=== PATIENT | female | born 1930 | race Caucasian/White ===

== ENCOUNTER 2016-07-26 15:00 | Outpatient (CLI) | payer MEDICARE, BC | END 2016-07-26 15:01 | disposition home or self-care (01) | DX: Z12.31 Encounter for screening mammogram for malignant neoplasm of breast (principal); Z80.3 Family history of malignant neoplasm of breast ==

== ENCOUNTER 2017-02-24 14:20 | Outpatient (CLI) | payer MEDICARE, BC | END 2017-02-24 14:21 | disposition critical access hospital (66) | LOC: EMS 14:20 | PROVIDERS: ATTEND Surgery | DX: R47.01 Aphasia (principal) | CPT/HCPCS: A0425; A0427 ==

== ENCOUNTER 2017-02-24 14:33 | Observation (INO) | payer MEDICARE, BC ==
--- NOTE | 2017-02-24 14:44 | ED Physician Documentation ---
PD HPI FOCAL NEURO - Stated complaint Stated Complaint: CVA - History obtained from History obtained from: Patient, EMS - History of Present Illness Timing - onset: Other (86-year-old woman with history of recurrent TIAs. Currently taking only clonazepam and pravastatin. She has listed allergies to Aggrenox and Plavix. I asked her why she is not taking aspirin, she says she is taking clonazepam instead. It is not clear why she is not taking aspirin. Regardless she lives with her who has some memory issues and she is basically caring for him. Abruptly at 1350 today started slurring her speech and having left-sided deficits which have improved but not completely resolved in route. 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 - Present Medications Home Medications: Ambulatory Orders Medication Instructions Recorded Confirmed Clonazepam 0.25 mg PO BID 01/31/14 02/24/17 Aspirin 325 mg PO DAILY 03/12/15 02/24/17 Pravastatin Sodium 20 mg PO DAILY #30 tablet 06/21/15 02/24/17 - Allergies Allergies/Adverse Reactions: Allergies Allergy/AdvReac Type Severity Reaction Status Date / Time clopidogrel bisulfate * Allergy Itching Verified 03/12/15 01:15 [From Plavix] dipyridamole [From Aggrenox] Allergy Unknown Verified 03/12/15 01:15 gabapentin Allergy Emesis Verified 03/12/15 01:15 phenytoin sodium * Allergy Unknown Verified 03/12/15 01:15 [From Dilantin] phenytoin sodium extended * Allergy Unknown Verified 03/12/15 01:15 [From Dilantin] - Social History Does the pt smoke?: No Smoking Status: Never smoker Does the pt drink ETOH?: No Does the pt have substance abuse?: No - Family History Family history: reports: Non contributory - Immunizations Immunizations are current?: Yes - POLST Patient has POLST: Yes PD ED PE NORMAL - Vitals Vital signs reviewed: Yes - General General: Alert and oriented X 3, No acute distress - HEENT HEENT: PERRL, EOMI - Neck Neck: Supple, no meningeal sign, No bony TTP - Cardiac Cardiac: RRR, No murmur - Respiratory Respiratory: No respiratory distress, Clear bilaterally - Abdomen Abdomen: Normal bowel sounds, Soft, Non tender - Derm Derm: Normal color, Warm and dry - Extremities Extremities: No edema, No calf tenderness / cord - Neuro Neuro: Alert and oriented X 3 - Psych Psych: Normal mood, Normal affect NIHSS - Time Time: 14:38 - Level of Consciousness Level of consciousness: (0) Alert, Keenly responsive LOC Questions: (0) Answers both Q's correct LOC Commands: (0) Performs both correctly - Gaze Best Gaze: (0) Normal - Visual Visual: (0) No loss - Facial Palsy Facial Palsy: (0) Normal, symmetrical movement - Motor Arms (both separate) Motor Arm (right): (0) No drift Motor Arm (left): (0) No drift - Motor Legs (both separate) Motor Leg (right): (0) No drift Motor Leg (left): (0) No drift - Limb Ataxia Limb Ataxia: (2) Present in 2 limbs (LUE/LLE) - Sensory Sensory: (0) Normal - Best Language Best Language: (0) No aphasia - Dysarthria Dysarthria: (0) Normal - Extinction and Inattention (formally neg Extinction and inattention: (0) No abnormality - Total Score/Results Total Score/Result: 2 Results - Vitals Vitals: Vital Signs - 24 hr 02/24/17 14:47 Temperature 36.7 C Heart Rate 63 Respiratory 17 Rate Blood Pressure 124/74 O2 Saturation 96 Oxygen O2 Source [] Room air O2 Source Room air - EKG (time done) 1454 Rate: Rate (enter#) (57) Rhythm: NSR Wiseman: LAD Intervals: Normal DC QRS: Normal Ischemia: Non specific changes Computer interpretation: Agree with computer PD MEDICAL DECISION MAKING - ED course ED course: 86-year-old woman with history of TIA, although she has not had a TIA in a couple years presents with a TIA with rapidly improving symptoms. Head CT was negative. She was administered aspirin here. I left a message for the daughter but it sounds like she is on her way to the hospital. Spoke with Dr. Suarez for observation at 1:12 PM. 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
--- NOTE | 2017-02-24 15:03 | CT Preliminary Report ---
Exam: CT Head W/O Stroke Protocol IMPRESSION: Generalized age-related chronic changes without evidence of acute intracranial abnormalit y when compared with 03/12/2015. Critical test called to Dr. Taylor 02/24/2017 1500 hrs. [facility] SITE ID: [id number]
--- NOTE | 2017-02-24 15:05 | CT Report ---
EXAM: CT HEAD EXAM DATE: 02/24/2017 02:48 PM. CLINICAL HISTORY: Cva vs tia. Weakness COMPARISON: 03/12/2015 TECHNIQUE: Multiaxial CT images were obtained from the foramen magnum to the vertex. IV contrast: Non e. Reformats: Coronal. In accordance with CT protocol optimization, one or more of the following dose reduction techniques w ere utilized for this exam: automated exposure control, adjustment of mA and/or KV based on patient s ize, or use of iterative reconstructive technique. FINDINGS: Parenchyma: No intraparenchymal hemorrhage. No evidence of mass, midline shift, or CT findings of acu te infarction. Haynes-white differentiation is distinct. Extraaxial Spaces: Normal for age. No subdural or epidural collections identified. Ventricles: The ventricles and cortical sulci are enlarged, consistent with age-related tissue loss. Sinuses: Imaged paranasal sinuses, orbits, and mastoids show no significant abnormality. Bones: No evidence of fracture or calvarial defect. Other: Diffuse chronic microangiopathic white matter changes are evident. IMPRESSION: Generalized age-related chronic changes without evidence of acute intracranial abnormalit y when compared with 03/12/2015. Critical test called to Dr. Taylor 02/24/2017 1500 hrs. [facility] Referring Provider Line: [phone] SITE ID: [id number]
[2017-02-24] MEDS ORDERED: ASPIRIN CHEW 81 MG TABLET PO STA (15:09)
[2017-02-24 15:13] LABS: BASOPHILS % (AUTO) 0.5 %; EOSINOPHILS # (AUTO) 0.3 10^3/uL (0.0-0.7); EOSINOPHILS % (AUTO) 4.4 %; HCT - HEMATOCRIT 37.4 % (37.0-47.0); HGB - HEMOGLOBIN 12.8 g/dL (12.0-16.0); LYMPHOCYTES % (AUTO) 25.6 %; MEAN CORPUSCULAR HEMOGLOBIN 33.3 pg (27.0-31.0); MEAN CORPUSCULAR HGB CONC 34.3 g/dL (32.0-36.0); MEAN PLATELET VOLUME 8.6 fL (7.9-10.8); MONOCYTES # (AUTO) 0.8 10^3/uL (0.0-1.0); MONOCYTES % (AUTO) 9.6 %; NEUTROPHILS # (AUTO) 4.7 10^3/uL (1.5-6.6); NEUTROPHILS % (AUTO) 59.9 %; RED BLOOD COUNT 3.86 10^6/uL (4.20-5.40); RED CELL DISTRIBUTION WIDTH 12.7 % (12.0-15.0); UNCORRECTED WHITE BLOOD COUNT 7.8 x10^3/uL; WHITE BLOOD COUNT 7.8 x10^3/uL (4.8-10.8)
[2017-02-24] MEDS ORDERED: HYDROcod/ACETAM 5/325 MG TABLET PO PRN (15:14)
[2017-02-24] MEDS ORDERED: ONDANSETRON 4 MG/2 ML VIAL IVP PRN (15:14)
[2017-02-24] MEDS ORDERED: SODIUM CHLORIDE FLUSH 0.9% 10 ML SYRINGE IVP PRN (15:14)
[2017-02-24] MEDS ORDERED: PROCHLORPERAZINE 10 MG/2 ML VIAL IVP PRN (15:14)
[2017-02-24] MEDS ORDERED: ACETAMINOPHEN 325 MG TABLET PO PRN (15:14)
[2017-02-24] MEDS ORDERED: ZOLPIDEM 5 MG TABLET PO PRN (15:14)
[2017-02-24] MEDS ORDERED: ASPIRIN CHEW 81 MG TABLET ONE (15:19)
[2017-02-24 15:20] LABS: ALBUMIN/GLOBULIN RATIO 1.6 (1.0-2.2); BILIRUBIN,TOTAL 0.4 mg/dL (0.2-1.0); BUN - BLOOD UREA NITROGEN 29 mg/dL (6-20); CALCIUM 9.2 mg/dL (8.5-10.3); CARBON DIOXIDE - CO2 26 mmol/L (21-32); CHLORIDE 106 mmol/L (101-111); CREATININE 0.8 mg/dL (0.4-1.0); GFR - MDRD 68 (>89); GLUCOSE 90 mg/dL (70-100); LIPASE 46 U/L (22-51); POTASSIUM 4.1 mmol/L (3.5-5.0); SODIUM 138 mmol/L (135-145); TOTAL PROTEIN 6.6 g/dL (6.7-8.2)
[2017-02-24 15:21] LABS: PT - PROTHROMBIN TIME 10.7 secs (9.9-12.6)
--- NOTE | 2017-02-24 17:55 | HISTORY & PHYSICAL EXAMINATION ---
Chief Complaint - Chief Complaint Chief Complaint: Left arm weakness and slurred speech History of Present Illness - Admitted From Admitted From:: emergency department - History Obtained From Records Reviewed: yes History obtained from: patient Exam Limitations: none - History of Present Illness HPI Comment/Other: Patient is a very pleasant 86-year-old female with a past medical history significant for seizure disorder, urinary incontinence and several TIAs in the past who presented to the emergency department with a chief complaint of left arm weakness and slurred speech. The patient states that she was in her normal state of health today. She states that she went out and worked in the garden and then came back into the house took a shower and then was reading the newspaper when she noticed that she could not lift her left arm. She states that the left arm was in her lap and she could not raise it on her own. The patient went over to the bathroom which was being remodeled and there was some workers there. She tried to talk to them but they noticed that she had slurred speech and was dripping from the left side of her mouth. The workers immediately called 911 and the patient was brought into the emergency department. The patient denies any headaches, blurred vision, runny nose, sore throat, nasal congestion, fevers or chills, chest pain, shortness of air, orthopnea, PND, abdominal pain, nausea, vomiting, muscle aches, joint pains, recent unintentional weight loss or changes in appetite. On presentation to the emergency department the patient was afebrile and vital signs were stable. The patient continued to have some mild left arm weakness and facial droop on examination. While the patient was in the emergency department the symptoms did appear to improve. The patient stated that by the time she arrived in the [facility] the symptoms have completely resolved. The patient was given a dose of aspirin in the emergency department. The patient also underwent a CT of her head which showed generalized age-related chronic changes without evidence of acute intracranial abnormality. Patient's labs were all within normal limits. She was placed in observation for what appears to be a resolving TIA. Review of Systems - Other Findings Other Findings: A comprehensive review of systems was performed the pertinent positives and negatives are stated above in the HPI and the remainder of the review of systems is negative. History - Past Medical History Cardiovascular: reports: None Respiratory: reports: None Neuro: reports: None, TIA, Seizure disorder Endocrine/Autoimmune: reports: None GI: reports: GERD : reports: None HEENT: reports: None Psych: reports: None Musculoskeletal: reports: None Derm: reports: None MRSA Hx?: No Other Past Medical History: 1. Seizure disorder. 2. Urinary stress incontinence or cystocele/bladder prolapse. 3. 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 Patient's father at the age of 94 from old age. No family history of strokes or seizures. The patient has many family members who lived into their 90s. Living arrangement: At home Living Situation: With spouse/s.o. Social History Notes: The patient was born and raised in [facility]. 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 The patient is the primary caregiver for her who has progressing dementia. 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 The patient has 3 daughters one who lives in [place] one in [place] and one in [place]. The patient denies any tobacco alcohol or drug use. - Substance History Use: Uses substance without health or social issues: NONE Abuse: Recurrent use of substance despite neg consequences: NONE Dependence: Experiences withdrawal or developed tolerances: NONE - POLST Patient has POLST: Yes POLST Status: DNR Meds/Allgy - Home Medications Home Medications: Ambulatory Orders Medication Instructions Recorded Confirmed Clonazepam 0.125 mg PO BID 01/31/14 02/24/17 Pravastatin Sodium 20 mg PO DAILY #30 tablet 06/21/15 02/24/17 - Allergies Allergies/Adverse Reactions: Allergies Allergy/AdvReac Type Severity Reaction Status Date / Time clopidogrel bisulfate * Allergy Itching Verified 03/12/15 01:15 [From Plavix] dipyridamole [From Aggrenox] Allergy Unknown Verified 03/12/15 01:15 gabapentin Allergy Emesis Verified 03/12/15 01:15 phenytoin sodium * Allergy Unknown Verified 03/12/15 01:15 [From Dilantin] phenytoin sodium extended * Allergy Unknown Verified 03/12/15 01:15 [From Dilantin] Exam - Vital Signs Reviewed Vital Signs: Yes Vital Signs: Vital Signs x48h Temp Pulse Resp BP Pulse Ox 02/24/17 17:22 36.4 C L 57 L 20 107/82 H 100 - Physical Exam General Appearance: positive: No acute distress, Alert Eyes Bilateral: positive: Normal inspection, PERRL, EOMI, Conjunctivae nml ENT: positive: ENT inspection nml, Pharynx nml, No signs of dehydration. negative: Purulent nasal drainage, Pharyngeal erythema, Oral lesions Neck: positive: Nml inspection, Thyroid nml, No JVD, Trachea midline. negative : Thyromegaly, Carotid bruit, Tracheal deviation Respiratory: positive: Chest non-tender, No respiratory distress, Breath sounds nml. negative: Wheezes, Rales, Rhonchi Cardiovascular: positive: Regular rate & rhythm, No murmur, No gallop Peripheral Pulses: positive: 2+ Abdomen: positive: Non-tender, No organomegaly, Nml bowel sounds, No distention. negative: Guarding, Rebound Back: positive: Nml inspection. negative: CVA tenderness (R), CVA tenderness (L ) Skin: positive: Color nml, No rash, Warm Extremities: positive: Non-tender, Full ROM, Nml appearance, No pedal edema Neurologic/Psychiatric: positive: Oriented x3, CN's nml (2-12), Motor nml, Sensation nml, Mood/affect nml, Facial droop (Very mild left facial droop), Slurred/abnml speech (Very mild slurred speech seems to be resolving) Conclusion/Plan - Problem List (1) TIA (transient ischemic attack) Conclusion/Plan: Patient presented with left arm weakness and slurred speech with left facial droop CT head was negative for any acute changes She has history of TIAs in the past Her symptoms improved in the ER and had almost completely resolved by the time she arrived on Med/Surg Plan: Aspirin Lipitor CTA head and neck MRI brain Echo Lipid profile [address] Neurochecks Qualifiers: 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 Code(s): G45.0 - Vertebro-basilar artery syndrome (2) Anxiety Conclusion/Plan: Stable Patient is on clonazepam for seizure disorder which can also help with her anxiety (3) Seizure disorder Conclusion/Plan: Continue home dose of clonazepam Stable (4) Prophylactic use of low molecular weight heparin for venous thromboembolism Conclusion/Plan: Place on lovenox while hospitalized - Lab Results Lab results reviewed: Yes Fish Bones: 02/24/17 15:01 02/24/17 15: Other Lab Results: Laboratory Results WBC 7.8 x10^3/uL (4.8-10.8) 02/24/17 15:01 RBC 3.86 10^6/uL (4.20-5.40) L 02/24/17 15: Hgb 12.8 g/dL (12.0-16.0) 02/24/17 15: Hct 37.4 % (37.0-47.0) 02/24/17 15: MCV 97.0 fL (81.0-99.0) 02/24/17 15: MCH 33.3 pg (27.0-31.0) H 02/24/17 15: MCHC 34.3 g/dL (32.0-36.0) 02/24/17 15: RDW 12.7 % (12.0-15.0) 02/24/17 15:01 Plt Count 200 10^3/uL (130-450) 02/24/17 15:01 MPV 8.6 fL (7.9-10.8) 02/24/17 15:01 Neut # 4.7 10^3/uL (1.5-6.6) 02/24/17 15:01 Lymph # 2.0 10^3/uL (1.5-3.5) 02/24/17 15:01 Pine # 0.8 10^3/uL (0.0-1.0) 02/24/17 15:01 Eos # 0.3 10^3/uL (0.0-0.7) 02/24/17 15:01 Baso # 0.0 10^3/uL (0.0-0.1) 02/24/17 15:01 Absolute Nucleated RBC 0.00 x10^3/uL 02/24/17 15:01 Nucleated RBCs 0.0 /100WBC 02/24/17 15:01 PT 10.7 secs (9.9-12.6) 02/24/17 15:01 INR 1.0 (0.8-1.2) 02/24/17 15:01 APTT 26.7 secs (24.9-33.3) 02/24/17 15:01 Sodium 138 mmol/L (135-145) 02/24/17 15: Potassium 4.1 mmol/L (3.5-5.0) 02/24/17 15: Chloride 106 mmol/L (101-111) 02/24/17 15: Carbon Dioxide 26 mmol/L (21-32) 02/24/17 15: Anion Gap 6.0 (6-13) 02/24/17 15: BUN 29 mg/dL (6-20) H 02/24/17 15: Creatinine 0.8 mg/dL (0.4-1.0) 02/24/17 15: Estimated GFR (MDRD) 68 (>89) L 02/24/17 15: Glucose 90 mg/dL (70-100) 02/24/17 15: Calcium 9.2 mg/dL (8.5-10.3) 02/24/17 15: Total Bilirubin 0.4 mg/dL (0.2-1.0) 02/24/17 15: AST 20 IU/L (10-42) 02/24/17 15:01 ALT 17 IU/L (10-60) 02/24/17 15: Alkaline Phosphatase 66 IU/L (42-121) 02/24/17 15: Troponin I < 0.04 ng/mL (<0.49) 02/24/17 15: Total Protein 6.6 g/dL (6.7-8.2) L 02/24/17 15: Albumin 4.1 g/dL (3.2-5.5) 02/24/17 15: Globulin 2.5 g/dL (2.1-4.2) 02/24/17 15: Albumin/Globulin Ratio 1.6 (1.0-2.2) 02/24/17 15: Lipase 46 U/L (22-51) 02/24/17 15: Ethyl Alcohol < 5.0 mg/dL 02/24/17 15:01 - Diagnostic Imaging Results Diagnostic Imaging Results: positive: Final report reviewed Diagnostic Imaging Results Comments: CT head Impression: Generalized age-related chronic changes without evidence of acute intracranial abnormality when compared with 03/12/2015 - EKG Results EKG Interpreted Independently: Yes Issues/Core Measures - Anticipated LOS Anticipated Stay Length: Less than 2 midnights - DVT/VTE - Prophylaxis VTE/DVT Prophylaxis med ordered at admit?: Yes
--- NOTE | 2017-02-24 17:56 | MRI Preliminary Report ---
Exam: MRI Brain W/O IMPRESSION: Equivocal findings of a tiny (3-4 mm) ill-defined focus of abnormal diffusion hyperinten sity in the right precentral gyrus, this abnormality can only be seen on image 21 of series 505. This could be a very small infarct. There is no other evidence for new or acute intracranial abnormality. Mild generalized age-related changes otherwise appear stable. If symptoms of stroke persist or worse n, consider short interval follow-up brain MRI. [facility] SITE ID: [id number]
[2017-02-24] MEDS ORDERED: IOPAMIDOL-300 100 ML VIAL IVP ONE (18:07)
--- NOTE | 2017-02-24 18:35 | MRI Report ---
EXAM: MRI BRAIN WITHOUT CONTRAST EXAM DATE: 02/24/2017 04:45 PM. CLINICAL HISTORY: TIA. Slurred speech and left-sided weakness. COMPARISON: 05/23/2015. TECHNIQUE: Multiplanar, multisequence T1-weighted and fluid-sensitive MR sequences of the brain were performed. Sequences optimized for routine evaluation. Other: None. IV Contrast: None. FINDINGS: Brain Volume: Stable mild diffuse atrophy. Parenchyma/Dura: There is a 3-4 mm subtle focus of mild diffusion hyperintensity in the region of the right precentral gyrus on image 21 series 505. This lesion is not clearly delineated on any of the o ther pulse sequences. No other evidence for acute diffusion abnormality. No acute hemorrhage, mass effect, midline shift or abnormal subdural fluid collection. Stable findings of mild multifocal white matter T2 hyperintense signal changes likely related to agin g and minimal chronic microangiopathy. Ventricles/Cisterns: No developing hydrocephalus. Sinuses: Minimal potentially chronic nonspecific paranasal sinus mucosal thickening. No air-fluid lev el. Bones: No focal pathologic appearing marrow signal changes in the skull or clivus. Other: The major arterial skull base flow-voids are present. IMPRESSION: Equivocal findings of a tiny ill-defined focus evident abnormal diffusion hyperintensity in the right precentral gyrus, this abnormality can only be seen on image 21 of series 505. This coul d be a very small infarct. There is no other evidence for new or acute intracranial abnormality. Mild generalized age-related changes otherwise appear stable. If symptoms of stroke persist or worsen, co nsider short interval follow-up brain MRI. [facility] Referring Provider Line: [phone] SITE ID: [id number]
--- NOTE | 2017-02-24 18:41 | CT Preliminary Report ---
Exam: CT Neck Angio IMPRESSION (neck CTA): No acute abnormality or hemodynamically significant stenosis of the cervical v ertebral or carotid arteries. [facility] SITE ID: [id number]
[2017-02-24] MEDS: SODIUM CHLORIDE FLUSH 0.9% 10 ML SYRINGE IVP SCH (18:43)
[2017-02-24] MEDS: SODIUM CHLORIDE 0.9% 1,000 ML IV SCH (18:44)
--- NOTE | 2017-02-24 18:56 | CT Preliminary Report ---
Exam: CT Head Angio IMPRESSION: Negative head CTA, no evidence for aneurysm or stenosis. [facility] SITE ID: [id number]
--- NOTE | 2017-02-24 18:59 | CT Report ---
EXAM: CT ANGIOGRAM NECK EXAM DATE: 02/24/2017 06:17 PM. CLINICAL HISTORY: TIA. Slurred speech. Left-sided weakness. COMPARISON: No previous CTA. TECHNIQUE: Routine axial helical imaging was performed from the skull base through the aortic arch. I V Contrast: 80 mL Isovue 300. Reconstructions: Routine multiplanar 3D MIP reconstructions. Evaluation of arterial stenosis is based on a NASCET method of measurement. In accordance with CT protocol optimization, one or more of the following dose reduction techniques w ere utilized for this exam: automated exposure control, adjustment of mA and/or KV based on patient s ize, or use of iterative reconstructive technique. FINDINGS: The cervical vertebral and carotid arteries are somewhat tortuous but there is no evidence for acute abnormality or focal flow limiting stenosis of these large vessels in the neck. The top of the aortic arch shows atherosclerotic calcifications and some tortuosity but the origins of the great vessels a re patent. Somewhat indistinct contours of the upper cervical vertebral artery secondary to beam hard ening streak artifact from dental metal. IMPRESSION: No acute abnormality or hemodynamically significant stenosis of the cervical vertebral or carotid arteries. [facility] Referring Provider Line: [phone] SITE ID: [id number]
--- NOTE | 2017-02-24 19:23 | CT Report ---
EXAM: CT ANGIOGRAM HEAD EXAM DATE: 02/24/2017 06:16 PM. CLINICAL HISTORY: TIA, slurred speech and left-sided weakness. COMPARISON: No previous CTA. Correlation is made with head MRA 05/23/2015. TECHNIQUE: Routine helical CTA imaging was performed through the head. IV Contrast: 80 mL Isovue 300. Reconstructions: Routine multiplanar 3D MIP reconstructions. NASCET Criteria are used for stenosis m easurements. In accordance with CT protocol optimization, one or more of the following dose reduction techniques w ere utilized for this exam: automated exposure control, adjustment of mA and/or KV based on patient s ize, or use of iterative reconstructive technique. FINDINGS: No proximal intracranial large artery flow-limiting stenosis, occlusion or filling defect has develop ed in the interval. Patent distal internal carotid arteries. No intracranial or vertebrobasilar insuf ficiency. Probable origin of the right MANAGER STORAGE. No evidence for [facility] aneurysm. IMPRESSION: Negative head CTA, no evidence for aneurysm or stenosis. [facility] Referring Provider Line: [phone] SITE ID: [id number]
[2017-02-24] MEDS: clonazePAM 0.5 MG TABLET PO SCH (21:49)
[2017-02-25] MEDS: SODIUM CHLORIDE 0.9% 1,000 ML IV SCH (04:18)
[2017-02-25 06:13] LABS: EOSINOPHILS # (AUTO) 0.5 10^3/uL (0.0-0.7); HGB - HEMOGLOBIN 11.9 g/dL (12.0-16.0); LYMPHOCYTES # (AUTO) 1.7 10^3/uL (1.5-3.5); MONOCYTES # (AUTO) 0.7 10^3/uL (0.0-1.0); NEUTROPHILS # (AUTO) 2.9 10^3/uL (1.5-6.6); RED CELL DISTRIBUTION WIDTH 12.9 % (12.0-15.0); UNCORRECTED WHITE BLOOD COUNT 5.8 x10^3/uL; WHITE BLOOD COUNT 5.8 x10^3/uL (4.8-10.8)
[2017-02-25 06:15] LABS: BASOPHILS % (AUTO) 0.6 %; EOSINOPHILS % (AUTO) 7.9 %; HCT - HEMATOCRIT 35.5 % (37.0-47.0); LYMPHOCYTES % (AUTO) 29.6 %; MEAN CORPUSCULAR HEMOGLOBIN 32.7 pg (27.0-31.0); MEAN CORPUSCULAR HGB CONC 33.5 g/dL (32.0-36.0); MEAN CORPUSCULAR VOLUME 97.6 fL (81.0-99.0); MEAN PLATELET VOLUME 8.7 fL (7.9-10.8); MONOCYTES % (AUTO) 11.8 %; NEUTROPHILS % (AUTO) 50.1 %; NUCLEATED RED BLOOD CELLS AUTO 0.1 /100WBC; RED BLOOD COUNT 3.63 10^6/uL (4.20-5.40)
[2017-02-25 06:20] LABS: PT - PROTHROMBIN TIME 11.1 secs (9.9-12.6)
[2017-02-25] MEDS: SODIUM CHLORIDE FLUSH 0.9% 10 ML SYRINGE IVP SCH (06:25)
[2017-02-25 06:40] LABS: ALBUMIN/GLOBULIN RATIO 1.6 (1.0-2.2); BILIRUBIN,TOTAL 0.4 mg/dL (0.2-1.0); BUN - BLOOD UREA NITROGEN 23 mg/dL (6-20); CALCIUM 8.7 mg/dL (8.5-10.3); CARBON DIOXIDE - CO2 24 mmol/L (21-32); CHLORIDE 114 mmol/L (101-111); CHOL/HDL RATIO 2.3 (<4.4); CHOLESTEROL 155 mg/dL; CREATININE 0.8 mg/dL (0.4-1.0); GFR - MDRD 68 (>89); GLUCOSE 99 mg/dL (70-100); HDL CHOLESTEROL 66 mg/dL; LDL/HDL RATIO 1.2 (<4.4); SODIUM 142 mmol/L (135-145); TOTAL PROTEIN 5.4 g/dL (6.7-8.2); TRIGLYCERIDES 61 mg/dL; VLDL CHOLESTEROL 12 mg/dL
[2017-02-25] MEDS ORDERED: PANTOPRAZOLE 40 MG TABLET PO SCH (07:00)
[2017-02-25 07:51] LABS: HEMOGLOBIN A1C 0.48 g/dL
[2017-02-25] MEDS: clonazePAM 0.5 MG TABLET PO SCH (08:35)
[2017-02-25] MEDS ORDERED: PRAVASTATIN 10 MG TABLET PO SCH (09:00)
[2017-02-25] MEDS ORDERED: POLYETHYLENE GLYCOL 3350 17 GM PACKET PO SCH (09:00)
[2017-02-25] MEDS ORDERED: ASPIRIN 325 MG TABLET PO SCH (09:00)
[2017-02-25] MEDS ORDERED: ENOXAPARIN 40 MG/0.4 ML SYRINGE SUBQ SCH (09:00)
--- NOTE | 2017-02-25 09:17 | Discharge Plan ---
Discharge Plan Disposition: 01 Home, Self Care Condition: Stable Prescriptions: Aspirin [Adult Low Dose Aspirin EC] 81 mg PO DAILY #60 tablet. Diet: Regular Activity Restrictions: Activity as Tolerated Shower Restrictions: No Driving Restrictions: No Weight Bearing: Full Weight Additional Instructions or Follow Up instructions: He presents was with left arm weakness, facial droop and slurred speech. Her symptoms resolved within a few hours. You most likely had a transient ischemic attack. Your MRI did show a small area where you may have had a previous stroke. We recommend that you restart aspirin and continue on your cholesterol medication. Please followup with your primary care physician if you have any further symptoms. No Smoking: If you smoke, Please STOP! Call for help.
--- NOTE | 2017-02-25 10:14 | DISCHARGE SUMMARY ---
Discharge Summary Admit Date: 02/24/17 Discharge Date: 02/25/17 Discharging Provider: Teddy Suarez MD Primary Care Provider: Sarabjit Lambert MD Code Status: Do Not Attempt Resuscitation Condition at Discharge: Stable Discharge Disposition: 01 Home, Self Care - DIAGNOSES Admission Diagnoses: 1. Transient ischemic attack 2. Anxiety 3. Seizure disorder 4. DVT prophylaxis Discharge Diagnoses with Status of Each Condition: 1. Transient ischemic attack 2. History of CVA 3. Anxiety 4. Seizure disorder 5. DVT prophylaxis - HPI History of Present Illness: Patient is a very pleasant 86-year-old female with a past medical history significant for seizure disorder, urinary incontinence and several TIAs in the past who presented to the emergency department with a chief complaint of left arm weakness and slurred speech. The patient states that she was in her normal state of health today. She states that she went out and worked in the garden and then came back into the house took a shower and then was reading the newspaper when she noticed that she could not lift her left arm. She states that the left arm was in her lap and she could not raise it on her own. The patient went over to the bathroom which was being remodeled and there was some workers there. She tried to talk to them but they noticed that she had slurred speech and was dripping from the left side of her mouth. The workers immediately called 911 and the patient was brought into the emergency department. The patient denies any headaches, blurred vision, runny nose, sore throat, nasal congestion, fevers or chills, chest pain, shortness of air, orthopnea, PND, abdominal pain, nausea, vomiting, muscle aches, joint pains, recent unintentional weight loss or changes in appetite. On presentation to the emergency department the patient was afebrile and vital signs were stable. The patient continued to have some mild left arm weakness and facial droop on examination. While the patient was in the emergency department the symptoms did appear to improve. The patient stated that by the time she arrived in the [facility] the symptoms have completely resolved. The patient was given a dose of aspirin in the emergency department. The patient also underwent a CT of her head which showed generalized age-related chronic changes without evidence of acute intracranial abnormality. Patient's labs were all within normal limits. She was placed in observation for what appears to be a resolving TIA. - HOSPITAL COURSE Hospital Course: On presentation to the [facility] the patient's symptoms had pretty much resolved. Over the course of her hospitalization the patient strength returned to baseline. She no longer had any facial droop, slurred speech or left arm weakness. The patient was monitored overnight on telemetry and had neuro checks which were all within normal limits. The patient did undergo CT A. of the head and neck which did not reveal any acute changes. The patient also underwent an MRI which did show an area in the right precentral gyrus that could be from a very small infarct. This however appeared to be old and was not the cause of the patient's presenting symptoms. Patient's echocardiogram did not show any thrombus it did reveal some diastolic dysfunction. The patient remained stable and was discharged home in stable condition. The patient had stopped taking aspirin she was advised to restart her aspirin. The patient's LDL was within normal limits. The patient will continue on aspirin and statin and followup with her primary care physician if she has any further symptoms. - ALLERGIES Allergies/Adverse Reactions: Allergies Allergy/AdvReac Type Severity Reaction Status Date / Time clopidogrel bisulfate * Allergy Itching Verified 03/12/15 01:15 [From Plavix] dipyridamole [From Aggrenox] Allergy Unknown Verified 03/12/15 01:15 gabapentin Allergy Emesis Verified 03/12/15 01:15 phenytoin sodium * Allergy Unknown Verified 03/12/15 01:15 [From Dilantin] phenytoin sodium extended * Allergy Unknown Verified 03/12/15 01:15 [From Dilantin] - MEDICATIONS Home Medications: Ambulatory Orders Medication Instructions Recorded Confirmed Clonazepam 0.125 mg PO BID 01/31/14 02/24/17 Pravastatin Sodium 20 mg PO DAILY #30 tablet 06/21/15 02/24/17 Aspirin [Adult Low Dose Aspirin EC] 81 mg PO DAILY #60 tablet. 02/25/17 - PHYSICAL EXAM AT DISCHARGE General Appearance: positive: No acute distress, Alert, Other (thin, frail) Eyes Bilateral: positive: Normal inspection, PERRL, EOMI, No lid inflammation, Conjunctivae nml, No scleral icterus ENT: positive: ENT inspection nml, Pharynx nml, No signs of dehydration. negative: Purulent nasal drainage, Pharyngeal erythema, Oral lesions Neck: positive: Nml inspection, Thyroid nml, No JVD, Trachea midline. negative : Thyromegaly, Lymphadenopathy (R), Lymphadenopathy (L), Carotid bruit, Tracheal deviation Respiratory: positive: Chest non-tender, No respiratory distress, Breath sounds nml. negative: Wheezes, Rales, Rhonchi Cardiovascular: positive: Regular rate & rhythm, No murmur, No gallop Peripheral Pulses: positive: 2+ Abdomen: positive: Non-tender, No organomegaly, Nml bowel sounds, No distention. negative: Guarding, Rebound, Hepatomegaly Back: positive: Nml inspection. negative: CVA tenderness (R), CVA tenderness (L ) Skin: positive: Color nml, No rash, Warm Extremities: positive: Non-tender, Full ROM, Nml appearance, No pedal edema Neurologic/Psychiatric: positive: Oriented x3, CN's nml (2-12), Motor nml, Sensation nml, Mood/affect nml - LABS Result Diagrams: 02/25/17 05:55 02/25/17 05:55 Other Lab Results: Laboratory Results WBC 5.8 x10^3/uL (4.8-10.8) 02/25/17 05:55 RBC 3.63 10^6/uL (4.20-5.40) L 02/25/17 05:55 Hgb 11.9 g/dL (12.0-16.0) L 02/25/17 05:55 Hct 35.5 % (37.0-47.0) L 02/25/17 05:55 MCV 97.6 fL (81.0-99.0) 02/25/17 05:55 MCH 32.7 pg (27.0-31.0) H 02/25/17 05:55 MCHC 33.5 g/dL (32.0-36.0) 02/25/17 05:55 RDW 12.9 % (12.0-15.0) 02/25/17 05:55 Plt Count 180 10^3/uL (130-450) 02/25/17 05:55 MPV 8.7 fL (7.9-10.8) 02/25/17 05:55 Neut # 2.9 10^3/uL (1.5-6.6) 02/25/17 05:55 Lymph # 1.7 10^3/uL (1.5-3.5) 02/25/17 05:55 [place] # 0.7 10^3/uL (0.0-1.0) 02/25/17 05:55 Eos # 0.5 10^3/uL (0.0-0.7) 02/25/17 05:55 Baso # 0.0 10^3/uL (0.0-0.1) 02/25/17 05:55 Absolute Nucleated RBC 0.01 x10^3/uL 02/25/17 05:55 Nucleated RBCs 0.1 /100WBC 02/25/17 05:55 PT 11.1 secs (9.9-12.6) 02/25/17 05:55 INR 1.0 (0.8-1.2) 02/25/17 05:55 APTT 26.7 secs (24.9-33.3) 02/24/17 15:01 Sodium 142 mmol/L (135-145) 02/25/17 05:55 Potassium 4.0 mmol/L (3.5-5.0) 02/25/17 05:55 Chloride 114 mmol/L (101-111) H 02/25/17 05:55 Carbon Dioxide 24 mmol/L (21-32) 02/25/17 05:55 Anion Gap 4.0 (6-13) L 02/25/17 05:55 BUN 23 mg/dL (6-20) H 02/25/17 05:55 Creatinine 0.8 mg/dL (0.4-1.0) 02/25/17 05:55 Estimated GFR (MDRD) 68 (>89) L 02/25/17 05:55 Glucose 99 mg/dL (70-100) 02/25/17 05:55 Glycated Hemoglobin 5.7 % (4.6-6.2) 02/25/17 05:55 Estim Average Glucose 117 (70-100) H 02/25/17 05:55 Calcium 8.7 mg/dL (8.5-10.3) 02/25/17 05:55 Total Bilirubin 0.4 mg/dL (0.2-1.0) 02/25/17 05:55 AST 17 IU/L (10-42) 02/25/17 05:55 ALT 14 IU/L (10-60) 02/25/17 05:55 Alkaline Phosphatase 55 IU/L (42-121) 02/25/17 05:55 Troponin I < 0.04 ng/mL (<0.49) 02/24/17 15:01 Total Protein 5.4 g/dL (6.7-8.2) L 02/25/17 05:55 Albumin 3.3 g/dL (3.2-5.5) 02/25/17 05:55 Globulin 2.1 g/dL (2.1-4.2) 02/25/17 05:55 Albumin/Globulin Ratio 1.6 (1.0-2.2) 02/25/17 05:55 Triglycerides 61 mg/dL (-149) 02/25/17 05:55 Cholesterol 155 mg/dL (-199) 02/25/17 05:55 LDL Cholesterol, Calc 77 mg/dL (-129) 02/25/17 05:55 VLDL Cholesterol 12 mg/dL 02/25/17 05:55 HDL Cholesterol 66 mg/dL (60-) 02/25/17 05:55 LDL/HDL Ratio 1.2 (<4.4) 02/25/17 05:55 Cholesterol/HDL Ratio 2.3 (<4.4) 02/25/17 05:55 Lipase 46 U/L (22-51) 02/24/17 15:01 Ethyl Alcohol < 5.0 mg/dL 02/24/17 15:01 - DIAGNOSTIC IMAGING Diagnostic Imaging Results: Final report reviewed Diagnostic Imaging Results Comments: MRI brain: Equivocal findings of tiny ill-defined focus evidence of abnormal diffusion hyperintensity in the right precentral gyrus, this abnormality can be seen on image 21 of series 505. This could be a very small infarct. There is no other evidence of new or acute intracranial abnormality. Mild generalized age-related changes otherwise appeared stable. If symptoms of stroke persist or worsen, consider short interval followup brain MRI. CT head impression Generalized age-related chronic changes without evidence of acute intracranial abnormality CTA head Negative head CTA, no evidence for aneurysm or stenosis CTA neck No acute abnormality or hemodynamically significant stenosis of the cervical vertebral or carotid arteries Echocardiogram Overall left ventricle her systolic function is normal with an ejection fraction of 7075%. Impaired relaxation consistent with grade 1 diastolic dysfunction. No evidence of mass or cardiac thrombus. - FOLLOW UP Follow Up: Patient presented with TIA symptoms which resolved prior to discharge. Patient had no further symptoms her MRI did show a tiny area where she may have had a previous infarct. There was no other acute findings. The patient was discharged home in stable condition and will continue her statin she was also restarted on aspirin. She will followup with her primary care physician.
[2017-02-25 11:00] VITALS: BP 103/69
== END 2017-02-25 11:00 | disposition home or self-care (01) ==
LOC: EDUNIT# → ED 14:33 → OBS 15:14
PROVIDERS: ADMIT Internal Medicine; ATTEND Internal Medicine
DX: G45.9 Transient cerebral ischemic attack, unspecified (principal); F41.9 Anxiety disorder, unspecified; G40.909 Epilepsy, unspecified, not intractable, without status epilepticus; Z86.73 Personal history of transient ischemic attack (TIA), and cerebral infarction without residual deficits; R32 Unspecified urinary incontinence; Z79.899 Other long term (current) drug therapy
CPT/HCPCS: 36415; 70450; 70496; 70498; 70551; 80053; 80061; 83036; 83690; 84484; 85025; 85610; 85730; 93005; 93306; 96372; 99284; 99285; A9270; G0378; G0480; J1650; Q9967; 80320

== ENCOUNTER 2017-04-02 15:52 | Outpatient (CLI) | payer MEDICARE, BC | END 2017-04-02 15:53 | disposition critical access hospital (66) | LOC: EMS 15:52 | PROVIDERS: ATTEND Surgery | DX: R10.9 Unspecified abdominal pain (principal) | CPT/HCPCS: A0425; A0429 ==

== ENCOUNTER 2017-04-02 16:04 | Observation (INO) | payer MEDICARE, BC ==
--- NOTE | 2017-04-02 18:06 | ED Physician Documentation ---
PD HPI ABD PAIN - Stated complaint Stated Complaint: ABD PX - Chief complaint Chief Complaint: Abd Pain - History obtained from History obtained from: Patient - History of Present Illness Timing - onset: Yesterday Timing - duration: Days (2) Timing - details: Gradual onset, Still present Quality: Cramping, Aching, Pain Location: RUQ, Epigastric Radiation: Upper back Improved by: Laying still Worsened by: Eating. No: Breathing, Palpation Associated symptoms: Nausea (with lack of appetite). No: Fever, Vomiting, Diarrhea, Constipation, Melena, Dysuria Similar symptoms before: Has not had sx before Recently seen: Not recently seen Review of Systems Constitutional: denies: Fever, Chills, Myalgias Nose: denies: Rhinorrhea / runny nose, Congestion Throat: denies: Sore throat Respiratory: denies: Cough GI: reports: Abdominal Pain, Nausea. denies: Vomiting, Diarrhea, Bloody / black stool : denies: Dysuria, Frequency, Discharge Skin: denies: Rash, Lesions Neurologic: reports: Generalized weakness. denies: Focal weakness, Numbness, Near syncope Endocrine: denies: Easy bruising / bleeding Immunocompromised: denies: Immunocompromised PD PAST MEDICAL HISTORY - Past Medical History Cardiovascular: None Respiratory: None Neuro: None, TIA, Seizure disorder Endocrine/Autoimmune: None GI: GERD : None HEENT: None Psych: None Musculoskeletal: None Derm: None - Past Surgical History Past Surgical History: Yes General: Appendectomy /ACIDITY TESTER: Hysterectomy - Present Medications Home Medications: Ambulatory Orders Medication Instructions Recorded Confirmed Clonazepam 0.125 mg PO BID 01/31/14 04/02/17 Pravastatin Sodium 20 mg PO DAILY #30 tablet 06/21/15 04/02/17 Aspirin [Adult Low Dose Aspirin EC] 81 mg PO DAILY #60 tablet. 02/25/17 - Allergies Allergies/Adverse Reactions: Allergies Allergy/AdvReac Type Severity Reaction Status Date / Time clopidogrel bisulfate * Allergy Itching Verified 03/12/15 01:15 [From Plavix] dipyridamole [From Aggrenox] Allergy Unknown Verified 03/12/15 01:15 gabapentin Allergy Emesis Verified 03/12/15 01:15 phenytoin sodium * Allergy Unknown Verified 03/12/15 01:15 [From Dilantin] phenytoin sodium extended * Allergy Unknown Verified 03/12/15 01:15 [From Pranav] - Social History Does the pt smoke?: No Smoking Status: Never smoker Does the pt drink ETOH?: No Does the pt have substance abuse?: No - Immunizations Immunizations are current?: Yes - POLST Patient has POLST: Yes POLST Status: DNR PD ED PE NORMAL - Vitals Vital signs reviewed: Yes - General General: Alert and oriented X 3, No acute distress, Well developed/nourished - HEENT HEENT: Atraumatic, PERRL (nonicteric), Pharynx benign - Neck Neck: Supple, no meningeal sign, No adenopathy - Cardiac Cardiac: RRR, No murmur - Respiratory Respiratory: Clear bilaterally - Abdomen Abdomen: Normal bowel sounds, Soft, Non distended, No organomegaly, Other ( tender upper abd mid to right side. Mild guarding RUQ. No rebound nor percussion tenderness. Palpable aorta but she is thin; does not feel enlarged. ) - Female Female : Deferred - Rectal Rectal: Deferred - Back Back: No CVA TTP - Derm Derm: Normal color, Warm and dry - Extremities Extremities: Normal ROM s pain, No edema, No calf tenderness / cord - Neuro Neuro: Alert and oriented X 3, No motor deficit, No sensory deficit, Normal speech - Psych Psych: Normal mood, Normal affect Results - Vitals Vitals: Vital Signs - 24 hr 04/02/17 04/02/17 16:17 20:19 Temperature 37.5 C Heart Rate 80 72 Respiratory 13 17 Rate Blood Pressure 104/71 111/64 O2 Saturation 95 92 Oxygen O2 Source [] Room air O2 Source Room air - Labs Labs: Laboratory Tests 04/02/17 04/02/17 04/02/17 18:43 18:43 18:43 WBC 6.8 RBC 4.12 L Hgb 13.5 Hct 39.6 MCV 96.0 MCH 32.8 H MCHC 34.2 RDW 12.9 Plt Count 200 MPV 8.7 Neut # 5.5 Lymph # 0.5 L [place] # 0.5 Eos # 0.3 Baso # 0.0 Absolute Nucleated RBC 0.01 Nucleated RBCs 0.1 Sodium 137 Potassium 3.8 Chloride 104 Carbon Dioxide 24 Anion Gap 9.0 BUN 13 Creatinine 0.8 Estimated GFR (MDRD) 68 L Glucose 117 H Calcium 9.1 Total Bilirubin 0.8 AST 494 H ALT 324 H Alkaline Phosphatase 137 H Troponin I < 0.04 Total Protein 6.5 L Albumin 3.7 Globulin 2.8 Albumin/Globulin Ratio 1.3 Lipase 32 Urine Color Urine Clarity Urine pH Ur Specific [place] Urine Protein Urine Glucose (UA) Urine Ketones Urine Occult Blood Urine Nitrite Urine Bilirubin Urine Urobilinogen Ur Leukocyte Esterase Urine RBC Urine WBC Ur Squamous Epith Cells Urine Bacteria Ur Microscopic Review Urine Culture Comments 04/02/17 19:17 WBC RBC Hgb Hct MCV MCH MCHC RDW Plt Count MPV Neut # Lymph # [place] # Eos # Baso # Absolute Nucleated RBC Nucleated RBCs Sodium Potassium Chloride Carbon Dioxide Anion Gap BUN Creatinine Estimated GFR (MDRD) Glucose Calcium Total Bilirubin AST ALT Alkaline Phosphatase Troponin I Total Protein Albumin Globulin Albumin/Globulin Ratio Lipase Urine Color YELLOW Urine Clarity CLEAR Urine pH 6.0 Ur Specific [place] 1.025 Urine Protein NEGATIVE Urine Glucose (UA) NEGATIVE Urine Ketones 15 H Urine Occult Blood TRACE-LYSE Urine Nitrite NEGATIVE Urine Bilirubin NEGATIVE Urine Urobilinogen 0.2 (NORMAL) Ur Leukocyte Esterase TRACE H Urine RBC 0-5 Urine WBC 0-3 Ur Squamous Epith Cells FEW Squamous Urine Bacteria None Seen Ur Microscopic Review INDICATED Urine Culture Comments INDICATED - Rads (name of study) abd CT Radiology: Prelim report reviewed (gallbladder wall thickening and inflammation. No surrounding fluid. ) RUQ U/S Radiology: Prelim report reviewed (GB wall thickness 5.4 mm. CBD 4mm. Trace pericholcystic fluid. Tender over GB on exam. ) PD MEDICAL DECISION MAKING - ED course Complexity details: re-evaluated patient (she did improve some with GI cocktail. However there is wall thickening of GB on CT and elevated AST/ALT ( normal bili), so concern foor biliary process. It could be gastritis, given recent use of daily ASA after TIA last month. ), considered differential, d/w patient, d/w call center consultant (Dr. Rios, surgery.) Departure - Departure Disposition: 66 [facility] DC/Xfer Clinical Impression: Cholecystitis Abdominal pain Qualifiers: Abdominal location: epigastric Qualified Code(s): R10.13 - Epigastric pain Condition: Stable Record reviewed to determine appropriate education?: Yes
[2017-04-02] MEDS ORDERED: MAG HYDROX/AL HYDROX/SIMETH 30 ML UDC PO STA (18:34)
[2017-04-02] MEDS ORDERED: ONDANSETRON 4 MG/2 ML VIAL IVP STA (18:34)
[2017-04-02] MEDS ORDERED: MORPHINE 10 MG/ML VIAL IVP STA (18:34)
[2017-04-02] MEDS ORDERED: SODIUM CHLORIDE 0.9% 1,000 ML IV ONE (18:34)
[2017-04-02] MEDS ORDERED: LIDOCAINE VISCOUS 2% 15 ML UDC MM STA (18:34)
[2017-04-02] MEDS ORDERED: SODIUM CHLORIDE FLUSH 0.9% 10 ML SYRINGE IVP ONE (18:46)
[2017-04-02 18:52] LABS: BASOPHILS % (AUTO) 0.1 %; EOSINOPHILS # (AUTO) 0.3 10^3/uL (0.0-0.7); EOSINOPHILS % (AUTO) 4.7 %; HCT - HEMATOCRIT 39.6 % (37.0-47.0); HGB - HEMOGLOBIN 13.5 g/dL (12.0-16.0); LYMPHOCYTES # (AUTO) 0.5 10^3/uL (1.5-3.5); LYMPHOCYTES % (AUTO) 6.7 %; MEAN CORPUSCULAR HEMOGLOBIN 32.8 pg (27.0-31.0); MEAN CORPUSCULAR HGB CONC 34.2 g/dL (32.0-36.0); MEAN PLATELET VOLUME 8.7 fL (7.9-10.8); MONOCYTES # (AUTO) 0.5 10^3/uL (0.0-1.0); MONOCYTES % (AUTO) 7.9 %; NEUTROPHILS # (AUTO) 5.5 10^3/uL (1.5-6.6); NEUTROPHILS % (AUTO) 80.6 %; NUCLEATED RED BLOOD CELLS AUTO 0.1 /100WBC; RED BLOOD COUNT 4.12 10^6/uL (4.20-5.40); RED CELL DISTRIBUTION WIDTH 12.9 % (12.0-15.0); UNCORRECTED WHITE BLOOD COUNT 6.8 x10^3/uL; WHITE BLOOD COUNT 6.8 x10^3/uL (4.8-10.8)
[2017-04-02] MEDS ORDERED: MORPHINE 10 MG/ML VIAL ONE (18:52)
[2017-04-02] MEDS ORDERED: ONDANSETRON 4 MG/2 ML VIAL ONE (18:53)
[2017-04-02] MEDS ORDERED: LIDOCAINE VISCOUS 2% 15 ML UDC MM ONE (18:53)
[2017-04-02] MEDS ORDERED: MAG HYDROX/AL HYDROX/SIMETH 30 ML UDC ONE (18:53)
[2017-04-02 19:26] LABS: BILIRUBIN,URINE NEGATIVE (NEGATIVE)
[2017-04-02 19:30] LABS: ALBUMIN/GLOBULIN RATIO 1.3 (1.0-2.2); BILIRUBIN,TOTAL 0.8 mg/dL (0.2-1.0); CALCIUM 9.1 mg/dL (8.5-10.3); CREATININE 0.8 mg/dL (0.4-1.0); POTASSIUM 3.8 mmol/L (3.5-5.0); TOTAL PROTEIN 6.5 g/dL (6.7-8.2)
[2017-04-02] MEDS ORDERED: IOPAMIDOL-300 100 ML VIAL ONE (19:38)
[2017-04-02 19:40] LABS: UA w/ MICROSCOPIC CHARGE YES
[2017-04-02 19:41] LABS: UR CULTURE IF IND INDICATED; WBC,URINE 0-3 /HPF (0-5)
[2017-04-02] MEDS ORDERED: IOPAMIDOL-300 100 ML VIAL IVP ONE (20:15)
--- NOTE | 2017-04-02 20:33 | CT Preliminary Report ---
Exam: CT Abdomen/Pelvis W/ IMPRESSION: 1. Gallbladder wall thickening in a contracted gallbladder. This can be a normal physiologic finding, however makes it difficult to exclude gallbladder wall inflammation. 2. No other localizing acute inflammatory process or significant interval change [facility] SITE ID: [id number]
--- NOTE | 2017-04-02 20:36 | CT Report ---
EXAM: CT ABDOMEN AND PELVIS EXAM DATE: 04/02/2017 08:21 PM. CLINICAL HISTORY: Upper abd pain since yesterday. COMPARISONS: None. TECHNIQUE: Routine helical CT imaging was performed through the abdomen and pelvis. IV contrast: 100 cc Isovue-370 IV. Enteric contrast: No. Reconstructions: Coronal and sagittal. In accordance with CT protocol optimization, one or more of the following dose reduction techniques w ere utilized for this exam: automated exposure control, adjustment of mA and/or KV based on patient s ize, or use of iterative reconstructive technique. FINDINGS: Lung Bases: Unremarkable. Liver: Normal. No masses. Gallbladder/Bile Ducts: The gallbladder is contracted. There is questionable gallbladder wall thicken ing. Spleen: Normal. Pancreas: Normal. Adrenal Glands: Normal. Kidneys: Normal. No masses or hydronephrosis. Peritoneal Cavity/Bowel: There is a nonobstructive bowel gas pattern. No abnormal fluid or gas collec tion. Pelvic Organs: There is a small right inguinal hernia which appears unchanged. Urinary bladder is unr emarkable. Vasculature: No aortic aneurysm. Bones: There is grade 1 spondylolisthesis at L4-L5. There is an old T12 wedging compression fracture which appears unchanged. Other: None. IMPRESSION: 1. Gallbladder wall thickening in a contracted gallbladder. This can be a normal physiologic finding, however makes it difficult to exclude gallbladder wall inflammation. 2. No other localizing acute inflammatory process or significant interval change [facility] Referring Provider Line: [phone] SITE ID: [id number]
[2017-04-02] MEDS ORDERED: FAMOTIDINE 20 MG/50 ML 50 ML IV ONE (21:58)
[2017-04-02] MEDS ORDERED: ONDANSETRON 4 MG/2 ML VIAL IVP PRN (22:00)
[2017-04-02] MEDS ORDERED: SODIUM CHLORIDE FLUSH 0.9% 10 ML SYRINGE IVP PRN (22:00)
[2017-04-02] MEDS ORDERED: MORPHINE 2 MG/ML SYRINGE IVP PRN (22:00)
[2017-04-02] MEDS ORDERED: ACETAMINOPHEN 325 MG TABLET PO PRN (22:06)
--- NOTE | 2017-04-02 22:36 | Ultrasound Preliminary Report ---
Exam: US Abdomen Limited IMPRESSION: 1. No evidence of cholelithiasis. There is gallbladder wall thickening and trace pericholecystic flui d which is nonspecific and may be secondary to acalculous cholecystitis, chronic liver disease or flu id overload. Correlate clinically. [facility] SITE ID: [id number]
--- NOTE | 2017-04-02 22:39 | Ultrasound Report ---
EXAM: ABDOMEN ULTRASOUND LIMITED, RUQ EXAM DATE: 04/02/2017 09:49 PM. CLINICAL HISTORY: Upper abd pain; GB wall thickening on CT. COMPARISON: 04/02/2017 CT, 02/25/2017 ultrasound. TECHNIQUE: Real-time scanning was performed with static images obtained. FINDINGS: Liver: Heterogeneous liver echotexture. Prominent intrahepatic bile ducts. No liver mass. 13.2 cm. Ma in portal vein flow: Hepatopetal. Gallbladder: No gallstones. The gallbladder wall measures up to 5 mm in thickness. No pericholecystic fluid collections. The gallbladder is mildly contracted. Biliary System: CBD measures 4 mm. No intrahepatic or extrahepatic ductal dilatation. Other: The visualized right kidney and pancreas are unremarkable. IMPRESSION: 1. No evidence of cholelithiasis. There is gallbladder wall thickening and trace pericholecystic flui d which is nonspecific and may be secondary to acalculous cholecystitis, chronic liver disease or flu id overload. Correlate clinically. [facility] Referring Provider Line: [phone] SITE ID: [id number]
[2017-04-02] MEDS: SODIUM CHLORIDE FLUSH 0.9% 10 ML SYRINGE IVP SCH (23:09)
[2017-04-02] MEDS: LACTATED RINGERS 1,000 ML IV SCH (23:09)
[2017-04-02] MEDS: AMPICILLIN/SULBACTAM 3 GM in SODIUM CHLORIDE 0.9% MINIBAG 100 ML IV SCH (23:51)
[2017-04-03] MEDS: SODIUM CHLORIDE FLUSH 0.9% 10 ML SYRINGE IVP SCH ×3 (05:01→18:39)
[2017-04-03] MEDS: AMPICILLIN/SULBACTAM 3 GM in SODIUM CHLORIDE 0.9% MINIBAG 100 ML IV SCH ×3 (05:01→17:46)
[2017-04-03 06:13] LABS: BASOPHILS % (AUTO) 0.4 %; EOSINOPHILS # (AUTO) 0.4 10^3/uL (0.0-0.7); EOSINOPHILS % (AUTO) 7.7 %; HCT - HEMATOCRIT 36.7 % (37.0-47.0); HGB - HEMOGLOBIN 12.4 g/dL (12.0-16.0); LYMPHOCYTES # (AUTO) 0.6 10^3/uL (1.5-3.5); LYMPHOCYTES % (AUTO) 10.9 %; MEAN CORPUSCULAR HEMOGLOBIN 32.8 pg (27.0-31.0); MEAN CORPUSCULAR HGB CONC 33.7 g/dL (32.0-36.0); MEAN CORPUSCULAR VOLUME 97.6 fL (81.0-99.0); MEAN PLATELET VOLUME 8.9 fL (7.9-10.8); MONOCYTES # (AUTO) 0.6 10^3/uL (0.0-1.0); MONOCYTES % (AUTO) 10.9 %; NEUTROPHILS % (AUTO) 70.1 %; RED BLOOD COUNT 3.77 10^6/uL (4.20-5.40); UNCORRECTED WHITE BLOOD COUNT 5.8 x10^3/uL; WHITE BLOOD COUNT 5.8 x10^3/uL (4.8-10.8)
[2017-04-03 06:33] LABS: ALBUMIN/GLOBULIN RATIO 1.3 (1.0-2.2); BILIRUBIN,TOTAL 1.1 mg/dL (0.2-1.0); CALCIUM 8.2 mg/dL (8.5-10.3); CREATININE 0.8 mg/dL (0.4-1.0); POTASSIUM 3.8 mmol/L (3.5-5.0); TOTAL PROTEIN 5.6 g/dL (6.7-8.2)
[2017-04-03] MEDS ORDERED: FAMOTIDINE 20 MG/50 ML 50 ML IV SCH (09:00)
[2017-04-03] MEDS ORDERED: SODIUM CHLORIDE 0.9% 0 ML IV ONE (10:59)
[2017-04-03] MEDS ORDERED: DEXAMETHASONE 4 MG/ML VIAL IVP ONE (11:00)
[2017-04-03] MEDS ORDERED: NEOSTIGMINE 1 MG/1 ML 10 ML MDV IVP ONE (11:00)
[2017-04-03] MEDS ORDERED: fentaNYL 100 MCG/2 ML VIAL IVP ONE (11:00)
[2017-04-03] MEDS ORDERED: ePHEDrine 50 MG/ML VIAL IVP ONE (11:00)
[2017-04-03] MEDS ORDERED: PROPOFOL 200 MG/20 ML VIAL IVP ONE (11:00)
[2017-04-03] MEDS ORDERED: GLYCOPYRROLATE 1 MG/5 ML VIAL IVP ONE (11:00)
[2017-04-03] MEDS ORDERED: ROCURONIUM 50 MG/5 ML VIAL IVP ONE (11:00)
[2017-04-03] MEDS ORDERED: ONDANSETRON 4 MG/2 ML VIAL IVP ONE (11:00)
[2017-04-03] MEDS ORDERED: LIDOCAINE-MPF 2% 5 ML VIAL IM ONE (11:00)
[2017-04-03] MEDS: LACTATED RINGERS 1,000 ML IV SCH ×2 (11:42→14:37)
[2017-04-03] MEDS ORDERED: BUPIVACAINE 0.5%-EPI 1:200000 PF 30 ML VIAL SUBQ ONE ×2 (11:56→12:58)
[2017-04-03] MEDS ORDERED: LACTATED RINGERS 1,000 ML IV ONE ×2 (11:57)
--- NOTE | 2017-04-03 12:14 | HISTORY & PHYSICAL EXAMINATION ---
DATE OF ADMISSION: 04/02/2017 ADMITTING PHYSICIAN: Bonnie Rios MD REASON FOR ADMISSION: Acute cholecystitis. HISTORY OF PRESENT ILLNESS: This is an 86-year-old female who presented to the emergency department complaining of epigastric pain radiating to her right side , which began on Tuesday, and progressively became worse. She states that she has had similar pain to this in the past, but it was never this severe. She denied any nausea or vomiting or association with food intake that she can remember. Upon workup in the emergency department, a CT scan of the abdomen was performed, which demonstrated thickening of the gallbladder with cholelithiasis. Subsequently, an ultrasound was performed, which also demonstrated thickening of the gallbladder and possible signs of acute cholecystitis. Laboratory workup revealed a normal white blood cell count but with elevation of her AST, ALT and alkaline phosphatase, with a normal bilirubin. She was subsequently admitted for observation to the surgical service. PAST MEDICAL HISTORY: Is consistent with a TIA 3 weeks ago. She has also had multiple prior TIAs in the past. She does take 325 mg of aspirin, and the last dose was night. 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 PAST SURGICAL HISTORY: Includes hysterectomy, open appendectomy and bilateral inguinal hernia repairs. ALLERGIES TO MEDICATIONS INCLUDE 1. PLAVIX. 2. GABAPENTIN. 3. DIPYRIDAMOLE. 4. PHENYTOIN. SOCIAL HISTORY: The patient is present today with her daughter. PHYSICAL EXAMINATION VITAL SIGNS: Temperature is 37.0, blood pressure 88/43, heart rate is 63, respiratory rate is 12, oxygen saturation is 97% on 2 L nasal cannula. GENERAL: The patient is awake, alert, oriented x3, in no acute distress. She is of average build. CARDIOVASCULAR: Regular rate and rhythm. CHEST: Clear to auscultation bilaterally with no rhonchi or wheezing. ABDOMEN: Soft and nondistended. She has tenderness to palpation in the epigastric and right upper quadrant region with no guarding and no rebound tenderness. LABORATORY VALUES: White blood cell count is 5.8, hemoglobin 12.4, hematocrit 36.7, platelets 162. Sodium 137, potassium 3.8, chloride 105, bicarbonate 26, BUN 12, creatinine 0.8. Total bilirubin on admission 0.8 and today is 1.1. AST on admission 494, today 255. ALT 324, today 230. Alkaline phosphatase 137, today 125. Lipase is 32. Ultrasound of the gallbladder demonstrates no evidence of cholelithiasis with gallbladder wall thickening and trace pericholecystic fluid, which may be secondary to acalculous cholecystitis. CT scan of the abdomen demonstrates gallbladder wall thickening and contracted gallbladder with no other acute inflammatory process. ASSESSMENT: This is an 86-year-old female with signs concerning for acute cholecystitis. PLAN: I had an extensive discussion with both the patient and her daughter regarding the likely etiology that the gallbladder is the cause of her symptoms and the option of proceeding with a laparoscopic cholecystectomy versus a cholecystostomy tube. I explained to both the patient and her daughter that the definitive procedure would be a laparoscopic cholecystectomy; however, this does require general anesthesia, and with general anesthesia, there is some risk of stroke or heart attack or even in addition to risks associated with the surgery itself, including damage to intraabdominal structures, bleeding and infection. I also described the procedure of a cholecystostomy tube and indicated that this procedure is less risky; however, it is not a definitive procedure, and ongoing gallbladder problems could occur. They have elected to proceed with laparoscopic cholecystectomy. The procedure was explained to the patient and her daughter in detail including potential risks involved, which have been described previously. She understands all of the above and agrees to proceed with surgery. JOB #: [id number] EXT JOB #:[id number] NEDA
--- NOTE | 2017-04-03 13:12 | Discharge Plan ---
Discharge Plan Disposition: 01 Home, Self Care Condition: Stable Diet: Regular Shower Restrictions: Yes (no tub bathing for 1 week) Driving Restrictions: Yes (not while on narcotics ) Weight Bearing: Full Weight No Smoking: If you smoke, Please STOP! Call for help. Follow-up with: KIKI GRAHAM MD [Provider Admit Priv/Credential] -
--- NOTE | 2017-04-03 13:13 | PROVIDER PROGRESS NOTE ---
Subjective - Prog Note Date Prog Note Date: 04/03/17 - Subjective Subjective: s/p lap faizan for acute acalculous cholecystitis. Patient will recover from surgery and once fully awake and following commands will be discharged home in stable condition. Final diagnosis: acute acalulous cholecystitis Objective - Vital Signs/Intake & Output Vital Signs: Vital Signs x48h Temp Pulse Resp BP Pulse Ox 04/03/17 13:05 98 04/03/17 13:00 98 04/03/17 12:55 98 04/03/17 10:47 59 L 18 90/52 L 97 04/03/17 08:59 37.0 C 63 12 88/43 L 88 L 04/03/17 08:00 94 04/03/17 05:21 37.3 C 64 18 97/50 L 98 Intake & Output: Intake & Output 03/31/17 04/01/17 04/02/17 04/03/17 23:59 23:59 23:59 23:59 Intake Total 830 Output Total 200 Balance 630 - Lab Results Fish Bones: 04/03/17 05:56 04/03/17 05:56 Other Labs: Lab Results x24hrs 04/03/17 04/03/17 Range/Units 05:56 05:56 WBC 5.8 (4.8-10.8) x10^3/uL RBC 3.77 L (4.20-5.40) 10^6/uL Hgb 12.4 (12.0-16.0) g/dL Hct 36.7 L (37.0-47.0) % MCV 97.6 (81.0-99.0) fL MCH 32.8 H (27.0-31.0) pg MCHC 33.7 (32.0-36.0) g/dL RDW 13.0 (12.0-15.0) % Plt Count 162 (130-450) 10^3/uL MPV 8.9 (7.9-10.8) fL Neut # 4.0 (1.5-6.6) 10^3/uL Lymph # 0.6 L (1.5-3.5) 10^3/uL [place] # 0.6 (0.0-1.0) 10^3/uL Eos # 0.4 (0.0-0.7) 10^3/uL Baso # 0.0 (0.0-0.1) 10^3/uL Absolute Nucleated RBC 0.00 x10^3/uL Nucleated RBCs 0.0 /100WBC Sodium 137 (135-145) mmol/L Potassium 3.8 (3.5-5.0) mmol/L Chloride 105 (101-111) mmol/L Carbon Dioxide 26 (21-32) mmol/L Anion Gap 6.0 (6-13) BUN 12 (6-20) mg/dL Creatinine 0.8 (0.4-1.0) mg/dL Estimated GFR (MDRD) 68 L (>89) Glucose 92 (70-100) mg/dL Calcium 8.2 L (8.5-10.3) mg/dL Total Bilirubin 1.1 H (0.2-1.0) mg/dL AST 255 H (10-42) IU/L ALT 230 H (10-60) IU/L Alkaline Phosphatase 125 H (42-121) IU/L Total Protein 5.6 L (6.7-8.2) g/dL Albumin 3.2 (3.2-5.5) g/dL Globulin 2.4 (2.1-4.2) g/dL Albumin/Globulin Ratio 1.3 (1.0-2.2)
[2017-04-03 20:13] VITALS: BP 95/58
--- NOTE | 2017-04-04 16:14 | OPERATIVE REPORT ---
DATE OF SURGERY: 04/03/2017 00:00:00 PREOPERATIVE DIAGNOSIS: Acute cholecystitis. POSTOPERATIVE DIAGNOSIS: Acute cholecystitis. NAME OF PROCEDURE: Laparoscopic Cholecystectomy SURGEON: Bonnie Rios MD ANESTHESIA: General. By Justine Carver CRNA INDICATION FOR PROCEDURE: This is an 86-year-old female who presented to the emergency department with complaints of RUQ pain. US revealed a distended gallbladder with a thickened wall. No stones were noted. Her CBD was 4 mm. WBC was normal and LFT's were slightly elevated with a bilirubin of 1.2. She was subsequently taken to the operating room for laparoscopic cholecystectomy. FINDINGS: After obtaining informed consent from the patient, she was brought into the operating room and positioned on the operating table in the supine position, taking note of pressure points. She was intubated by Anesthesia. She was administered perioperative antibiotics. She was prepped and draped in the usual sterile fashion. A timeout was taken according to protocol. A supraumbilical 1 cm incision was created and deepened down to the umbilical stalk, which was grasped, elevated and a Veress needle inserted. The abdominal cavity was insufflated. A 5 mm incision was created to the right of the epigastric region. The Optiview trocar was inserted at this location, and the Veress needle removed and exchanged for a 12 mm port. Two additional 5 mm ports were placed along the right lateral abdominal wall. The gallbladder was grasped and retracted over the dome of the liver. There were some filmy adhesions of the underlying omentum to the liver. The gallbladder was noted to be edematous. The base of the gallbladder was retracted medially, and the lateral attachments were divided using electrocautery toward the liver bed. I then worked my way medially towards the cystic duct and further medially to the medial attachments. The cystic duct was then circumferentially dissected free from the surrounding fatty tissue. The cystic artery was also dissected free. It was noted to have an anterior branch, which was also dissected out from the underlying fatty tissue. The base of the gallbladder was resected from the liver , exposing the critical view. The cystic duct did not appear dilated. It was palpated with the maryland retractor and no stones were palpated. The cystic duct was then clipped with 2 clips placed proximally and 1 distally and divided. The anterior branch of the cystic artery was clipped with 1 clip placed proximally and divided with electrocautery, and the cystic artery was clipped with 2 clips proximally, 1 distally and divided. The gallbladder was then removed from the gallbladder fossa with electrocautery. There was a small amount of bleeding from the liver bed during this process. There was no spillage of bile or stones. The gallbladder was then placed in a specimen bag and removed through the umbilical port. Hemostasis was noted to be achieved. The abdominal ports were opened, and the abdominal cavity desufflated. All ports were then removed. Next, 30 mL of lidocaine was administered into the incisions. The umbilical incision was closed with an interrupted 0 figure-of-8 Vicryl suture. The skin incisions were closed with 4-0 Monocryl. Dermabond was applied. The patient was extubated and taken to the recovery room in stable condition. ESTIMATED BLOOD LOSS: 10 mL. FLUIDS: Please see the Anesthesia documentation. COMPLICATIONS: None. SPECIMENS: Gallbladder. JOB #: [id number] EXT JOB #:[id number] NEDA
== END 2017-04-03 20:00 | disposition home or self-care (01) ==
LOC: EDUNIT# → ED 16:04 → OBS 22:00
PROVIDERS: ADMIT Surgery; ATTEND Surgery
PROC: 0FT44ZZ Resection of Gallbladder, Percutaneous Endoscopic Approach (ICD-10-PCS; principal; 2017-04-03 11:15)
DX: K81.0 Acute cholecystitis (principal); G40.909 Epilepsy, unspecified, not intractable, without status epilepticus; Z86.73 Personal history of transient ischemic attack (TIA), and cerebral infarction without residual deficits; Z79.82 Long term (current) use of aspirin; Z79.899 Other long term (current) drug therapy
CPT/HCPCS: 36415; 47562; 74177; 76705; 80053; 81001; 83690; 84484; 85025; 87086; 93005; 96361; 96365; 96366; 96367; 96375; 99283; 99284; A9270; J7120; Q9967; 81003; 96374

== ENCOUNTER 2017-04-05 12:16 | Outpatient (CLI) | payer MEDICARE, BC | END 2017-04-05 12:17 | disposition critical access hospital (66) | LOC: EMS 12:16 | PROVIDERS: ATTEND Surgery | DX: R53.1 Weakness (principal); R53.83 Other fatigue | CPT/HCPCS: A0425; A0429 ==

== ENCOUNTER 2017-04-05 12:26 | Inpatient (IN) | payer MEDICARE, BC ==
--- NOTE | 2017-04-05 12:38 | ED Physician Documentation ---
History of Present Illness - Stated complaint Stated Complaint: WEAKNESS FEVER - Chief complaint Chief Complaint: Abd Pain - Additonal information Additional information: hx from pt 86 female s/p lap faizan Dr Rios a few days ago to ER BIBA for poor PO intake upper abdn pain nausea pt found to be febrile by EMS is slightly hypoxic upon arrival in ED states she has urinated properly since dc - reggie ward Review of Systems Constitutional: reports: Fever, Fatigue Cardiac: denies: Chest pain / pressure, Palpitations Respiratory: denies: Dyspnea, Cough GI: reports: Abdominal Pain, Nausea. 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 02/25/17 Atorvastatin Calcium 40 mg PO QPM 04/03/17 04/05/17 - Allergies Allergies/Adverse Reactions: Allergies Allergy/AdvReac Type Severity Reaction Status Date / Time clopidogrel bisulfate * Allergy Itching Verified 04/05/17 12:34 [From Plavix] dipyridamole [From Aggrenox] Allergy Unknown Verified 04/05/17 12:34 gabapentin Allergy Emesis Verified 04/05/17 12:34 phenytoin sodium * Allergy Unknown Verified 04/05/17 12:34 [From Dilantin] phenytoin sodium extended * Allergy Unknown Verified 04/05/17 12:34 [From Dilantin] - Social History Does the pt smoke?: No Smoking Status: Never smoker Does the pt drink ETOH?: No Does the pt have substance abuse?: No - Immunizations Immunizations are current?: Yes - POLST Patient has POLST: Yes POLST Status: DNR PD ED PE NORMAL - Vitals Vital signs reviewed: Yes (febrile sat 92-95%) - General General: Other (arousable and answers questions) - HEENT HEENT: No: Moist mucous membranes (dry) - Neck Neck: Supple, no meningeal sign - Cardiac Cardiac: RRR - Respiratory Respiratory: No respiratory distress, Other (little coarse, non focal) - Abdomen Abdomen: Other (umbiical port incision appears slightly bruised and erythematous , high RUQ TTP) - Derm Derm: Normal color - Extremities Extremities: No deformity, Other (mild edema samuel) - Neuro Neuro: Other (arousable) Results - Vitals Vitals: Vital Signs - 24 hr 04/05/17 04/05/17 04/05/17 12:31 13:42 14:57 Temperature 38.5 C H 38.1 C H 36.5 C Heart Rate 84 82 83 Respiratory 18 19 14 Rate Blood Pressure 131/63 H 102/54 L O2 Saturation 95 100 97 04/05/17 04/05/17 15:39 16:40 Temperature 37.0 C Heart Rate 75 73 Respiratory 16 14 Rate Blood Pressure 105/52 L 90/57 L O2 Saturation 97 97 Oxygen O2 Source [Without Activity] Room air O2 Source Room air - Labs Labs: Laboratory Tests 04/05/17 04/05/17 04/05/17 01:30 12:50 12:50 WBC 9.0 RBC 3.90 L Hgb 12.7 Hct 37.7 MCV 96.9 MCH 32.6 H MCHC 33.6 RDW 12.8 Plt Count 170 MPV 8.1 Neut # 8.0 H Lymph # 0.1 L [place] # 0.6 Eos # 0.2 Baso # 0.0 Absolute Nucleated RBC 0.00 Nucleated RBCs 0.0 Sodium 136 Potassium 3.6 Chloride 102 Carbon Dioxide 25 Anion Gap 9.0 BUN 11 Creatinine 0.8 Estimated GFR (MDRD) 68 L Glucose 118 H Lactic Acid Calcium 8.5 Total Bilirubin 2.2 H AST 112 H ALT 154 H Alkaline Phosphatase 234 H Total Protein 5.8 L Albumin 3.2 Globulin 2.6 Albumin/Globulin Ratio 1.2 Lipase 22 Urine Color YELLOW Urine Clarity CLEAR Urine pH 7.0 Ur Specific [place] 1.010 Urine Protein NEGATIVE Urine Glucose (UA) NEGATIVE Urine Ketones TRACE Urine Occult Blood NEGATIVE Urine Nitrite NEGATIVE Urine Bilirubin NEGATIVE Urine Urobilinogen 0.2 (NORMAL) Ur Leukocyte Esterase NEGATIVE Ur Microscopic Review NOT INDICATED Urine Culture Comments NOT INDICATED 04/05/17 12:50 WBC RBC Hgb Hct MCV MCH MCHC RDW Plt Count MPV Neut # Lymph # [place] # Eos # Baso # Absolute Nucleated RBC Nucleated RBCs Sodium Potassium Chloride Carbon Dioxide Anion Gap BUN Creatinine Estimated GFR (MDRD) Glucose Lactic Acid 0.8 Calcium Total Bilirubin AST ALT Alkaline Phosphatase Total Protein Albumin Globulin Albumin/Globulin Ratio Lipase Urine Color Urine Clarity Urine pH Ur Specific [place] Urine Protein Urine Glucose (UA) Urine Ketones Urine Occult Blood Urine Nitrite Urine Bilirubin Urine Urobilinogen Ur Leukocyte Esterase Ur Microscopic Review Urine Culture Comments - Rads (name of study) CXR Radiology: See rad report (no infiltrate, R neck subcut emphysema likely iatrogenic) ruq sono Radiology: See rad report (limited by air s/p lap surgery) CTPA Radiology: See rad report (no PE, no dissection, tiny pleural effusions with atelectasis, extensive subcut air) CT abd pelvis c IV con Radiology: See rad report (interval lap faizan, periumbilical fat stranding, wide spread abd wall emphysemam trivedi, tiny effusions, no abscess to explain fever) PD MEDICAL DECISION MAKING - ED course ED course: pt to ER with fatigue poor PO intake some RUQ pain postop arrived lethairgic febrile slightly hypoxic got labs sono CXR UA - notable for elev LFTs then pt acutely worsened - temp to 102+ tachy hypotensive gave 3 L NS zosyn and vanco and pt stabilized got rpt CXR to enssure no pneumo (subcut air on xray 1 - no change) got CTPA to rule out OPE and further try to ID source of sucut air - no acute process and CT abd pelvis with IV con since sono non diag - also extensive subcut air skin is not notable abn except erythema around umbilical incision - no ecchymois necrosis vesicles bullae etc to suggest nec fasc - Dr Rios advises this can occur s/p lab surgery with insufflation Dr Rios to ER and will admit Departure - Departure Disposition: ED Place in Observation Clinical Impression: Postoperative abdominal pain, Postoperative fever, Dehydration Discharge Date/Time: 04/05/17 17:50
[2017-04-05] MEDS ORDERED: ONDANSETRON 4 MG/2 ML VIAL IVP STA (12:41)
[2017-04-05] MEDS ORDERED: ACETAMINOPHEN 1,000 MG/100 ML 100 ML IV STA (12:41)
[2017-04-05] MEDS ORDERED: SODIUM CHLORIDE 0.9% 1,000 ML IV ONE ×3 (12:41→15:06)
[2017-04-05 13:00] LABS: BASOPHILS % (AUTO) 0.3 %; EOSINOPHILS # (AUTO) 0.2 10^3/uL (0.0-0.7); EOSINOPHILS % (AUTO) 2.6 %; HCT - HEMATOCRIT 37.7 % (37.0-47.0); HGB - HEMOGLOBIN 12.7 g/dL (12.0-16.0); LYMPHOCYTES # (AUTO) 0.1 10^3/uL (1.5-3.5); LYMPHOCYTES % (AUTO) 1.6 %; MEAN CORPUSCULAR HEMOGLOBIN 32.6 pg (27.0-31.0); MEAN CORPUSCULAR HGB CONC 33.6 g/dL (32.0-36.0); MEAN CORPUSCULAR VOLUME 96.9 fL (81.0-99.0); MEAN PLATELET VOLUME 8.1 fL (7.9-10.8); MONOCYTES # (AUTO) 0.6 10^3/uL (0.0-1.0); MONOCYTES % (AUTO) 7.1 %; NEUTROPHILS % (AUTO) 88.4 %; RED CELL DISTRIBUTION WIDTH 12.8 % (12.0-15.0)
[2017-04-05] MEDS ORDERED: ONDANSETRON 4 MG/2 ML VIAL ONE (13:00)
[2017-04-05] MEDS ORDERED: ACETAMINOPHEN 1,000 MG/100 ML 100 ML IV ONE (13:00)
[2017-04-05 13:16] LABS: ALBUMIN/GLOBULIN RATIO 1.2 (1.0-2.2); BILIRUBIN,TOTAL 2.2 mg/dL (0.2-1.0); CALCIUM 8.5 mg/dL (8.5-10.3); CREATININE 0.8 mg/dL (0.4-1.0); POTASSIUM 3.6 mmol/L (3.5-5.0); TOTAL PROTEIN 5.8 g/dL (6.7-8.2)
[2017-04-05 13:58] LABS: BILIRUBIN,URINE NEGATIVE (NEGATIVE)
[2017-04-05 14:00] LABS: UA CHARGE (STRIP ONLY) YES; UR CULTURE IF IND NOT INDICATED
--- NOTE | 2017-04-05 14:09 | XRAY Preliminary Report ---
Exam: XR Chest 1 View IMPRESSION: 1. Right neck subcutaneous emphysema, probably iatrogenic. Historical correlation is recommended. 2. No other acute disease. [facility] SITE ID: [id number]
--- NOTE | 2017-04-05 14:12 | XRAY Report ---
EXAM: CHEST RADIOGRAPHY EXAM DATE: 04/05/2017 01:49 PM. CLINICAL HISTORY: Fever post op sat 92%. COMPARISON: 03/12/2015. TECHNIQUE: 1 view. FINDINGS: Lungs/Pleura: No definite localized infiltrate, consolidation, effusion, or pneumothorax. Mediastinum: Normal heart size, unchanged. Tortuous aorta. Upper lobe vessels not distended. Other: Degenerative changes. Prominent subcutaneous emphysema in the right subclavian region and base of neck. IMPRESSION: 1. Right neck subcutaneous emphysema, probably iatrogenic. Historical correlation is recommended. 2. No other acute disease. [facility] Referring Provider Line: [phone] SITE ID: [id number]
[2017-04-05] MEDS ORDERED: PIPERACILLIN/TAZOBACTAM 3.375 GM in SODIUM CHLORIDE 0.9% MINIBAG 100 ML IV STA (15:05)
[2017-04-05] MEDS ORDERED: VANCOMYCIN INJ 1 GM in SODIUM CHLORIDE 0.9% 250 ML IV STA (15:05)
--- NOTE | 2017-04-05 15:51 | XRAY Preliminary Report ---
Exam: XR Chest 1 View IMPRESSION: Upper right chest wall subcutaneous emphysema, extending down to the axilla, otherwise un remarkable single view chest. [facility] SITE ID: [id number]
--- NOTE | 2017-04-05 15:53 | XRAY Report ---
EXAM: CHEST RADIOGRAPHY EXAM DATE: 04/05/2017 03:28 PM. CLINICAL HISTORY: Right neck subcutaneous emphysema. COMPARISON: Today at 1334. TECHNIQUE: 1 view. FINDINGS: Lungs/Pleura: No focal opacities evident. No pleural effusion. No pneumothorax identified. Mediastinum: Within exam limitations, cardiomediastinal contour is normal. No pneumomediastinum. Other: Right supraclavicular subcutaneous emphysema, now extending down to the axilla. IMPRESSION: Upper right chest wall subcutaneous emphysema, extending down to the axilla, otherwise un remarkable single view chest. [facility] Referring Provider Line: [phone] SITE ID: [id number]
[2017-04-05] MEDS ORDERED: IOPAMIDOL-300 100 ML VIAL ONE (15:57)
[2017-04-05] MEDS ORDERED: VANCOMYCIN 1 GM VIAL ONE (16:00)
[2017-04-05] MEDS ORDERED: SODIUM CHLORIDE FLUSH 0.9% 10 ML SYRINGE IVP ONE (16:01)
--- NOTE | 2017-04-05 16:56 | Ultrasound Report ---
RIGHT UPPER QUADRANT ULTRASOUND: 04/05/2017 Right upper quadrant pain and fever status post cholecystectomy on 04/03/2017. Real-time scanning by the tow truck dispatcher with saved static images reviewed. FINDINGS: LIVER: Normal echotexture, 15 cm longitudinally, limited evaluation due to abdominal pain. GALLBLADDER: Surgically absent. Air noted in the gallbladder fossa. COMMON BILE DUCT: 3 mm with slightly thickened wall. RIGHT KIDNEY: Not well seen. FREE FLUID: None significant. IMPRESSION: STUDY LIMITED BY BOWEL GAS AND INTRAABDOMINAL AIR FROM RECENT SURGERY AND BY PATIENT PAIN. NO UNEXPECTED POSTOPERATIVE FINDINGS ARE SEEN. JOB #: [id number] EXT JOB #: [id number]
--- NOTE | 2017-04-05 17:08 | CT Preliminary Report ---
Exam: CT Abdomen/Pelvis W/ IMPRESSION: Interval laparoscopic cholecystectomy with periumbilical fat stranding and widespread abd ominal wall emphysema. Purdy catheter in place. Tiny effusions. No abscess or other acute abnormality to explain postop fever. [facility] SITE ID: [id number]
[2017-04-05] MEDS ORDERED: SODIUM CHLORIDE FLUSH 0.9% 10 ML SYRINGE IVP PRN (17:10)
--- NOTE | 2017-04-05 17:10 | CT Report ---
EXAM: CT ABDOMEN AND PELVIS EXAM DATE: 04/05/2017 04:17 PM. CLINICAL HISTORY: Post op fever and abdomen pain. COMPARISONS: 04/02/2017. TECHNIQUE: Routine helical CT imaging was performed through the abdomen and pelvis. IV contrast: 100 cc of Isovue-300. Enteric contrast: No. Reconstructions: Coronal and sagittal. In accordance with CT protocol optimization, one or more of the following dose reduction techniques w ere utilized for this exam: automated exposure control, adjustment of mA and/or KV based on patient s ize, or use of iterative reconstructive technique. FINDINGS: Lung Bases: Tiny pleural effusions, otherwise unremarkable. Liver: Normal. No masses. Gallbladder/Bile Ducts: Interval cholecystectomy with minor fat stranding in the gallbladder fossa. N o dilated ducts. Spleen: Normal. Pancreas: Normal. Adrenal Glands: Normal. Kidneys: Normal. No masses or hydronephrosis. Peritoneal Cavity/Bowel: Mild diverticulosis. No free fluid, free air or adenopathy. No masses or acu te inflammatory process. Nonvisualized appendix. Pelvic Organs: Hysterectomy. Purdy catheter drains the bladder. Vaginal pessary noted. Vasculature: Torturous nondilated aorta with moderate atherosclerotic calcification. Bones: Stable T12 compression fracture and stable mild anterolisthesis at L4-L5. Other: Small fat-containing right inguinal hernia again noted. There is periumbilical fat stranding a nd widespread abdominal wall emphysema compatible with recent laparoscopic surgery. No postop fluid c ollections identified. IMPRESSION: Interval laparoscopic cholecystectomy with periumbilical fat stranding and widespread abd ominal wall emphysema. Purdy catheter in place. Tiny effusions. No abscess or other acute abnormality to explain postop fever. [facility] Referring Provider Line: [phone] SITE ID: [id number]
--- NOTE | 2017-04-05 17:17 | CT Preliminary Report ---
Exam: CT Chest Angio (PE) IMPRESSION: 1. No pulmonary embolus. 2. No aortic aneurysm or dissection. 3. Tiny pleural effusions with mild bibasilar atelectasis. 4. Extensive right-sided subcutaneous emphysema extending to the supraclavicular region. [facility] SITE ID: [id number]
--- NOTE | 2017-04-05 17:20 | CT Report ---
EXAM: CT ANGIOGRAM CHEST EXAM DATE: 04/05/2017 04:35 PM. CLINICAL HISTORY: Post op hypoxia. Subcutaneous neck emphysema. COMPARISON: None. TECHNIQUE: Routine helical imaging was performed through the chest in the pulmonary arterial phase. I V Contrast: 100 cc of Isovue-300. Reconstructions: Coronal 3-D MIP reconstructions.Sagittal and coron al. In accordance with CT protocol optimization, one or more of the following dose reduction techniques w ere utilized for this exam: automated exposure control, adjustment of mA and/or KV based on patient s ize, or use of iterative reconstructive technique. FINDINGS: Pulmonary Arteries: Diagnostic quality: Adequate through the segmental arteries. No evidence for acute or chronic pulmona ry emboli. RV/LV is within normal limits. There is no interventricular septal bowing. There is no reflux of cont rast material in the IVC. Lungs/Pleura: Tiny pleural effusions and mild bibasilar atelectasis noted. No consolidation, nodules, or edema. No pneumothorax. Mediastinum: Mild aortic calcification noted. No cardiac enlargement or adenopathy. Thoracic Aorta: Unremarkable. Other: Right supraclavicular soft tissue emphysema noted, extending inferiorly medial to the right up per scapula, into the anterior right axilla, deep to the right breast, and laterally down to the righ t abdominal wall. Stable T12 compression fracture. IMPRESSION: 1. No pulmonary embolus. 2. No aortic aneurysm or dissection. 3. Tiny pleural effusions with mild bibasilar atelectasis. 4. Extensive right-sided subcutaneous emphysema extending to the supraclavicular region. [facility] Referring Provider Line: [phone] SITE ID: [id number]
[2017-04-05] MEDS ORDERED: IOPAMIDOL-300 100 ML VIAL IVP ONE (18:28)
[2017-04-05] MEDS: LACTATED RINGERS 1,000 ML IV SCH (18:55)
--- NOTE | 2017-04-05 20:19 | CONSULTATION NOTE ---
Referring Provider Name of Referring Provider:: Bonnie Rios Consult Date: 04/05/17 Chief Complaint - Chief Complaint Chief Complaint: Abdominal pain and fever History of Present Illness - Admitted From Admitted From:: Emergency Department - History Obtained From Records Reviewed: Yes History obtained from: Patient and medical records Exam Limitations: None - History of Present Illness HPI Comment/Other: Patient is an 86-year-old female with a past medical history significant for multiple TIAs, seizure disorder and GERD who presented to the emergency department on 04/02/2017 with a chief complaint of epigastric abdominal pain radiating to her right side. The patient's pain had started on 04/01/2017 and progressively came worse over the next day. She denied any nausea or vomiting, fever, chest pain, cough, any association with food intake. Upon workup in the emergency department the patient's CT scan showed thickening of the gallbladder and cholelithiasis. Subsequently an ultrasound was performed which also demonstrated thickening of the gallbladder and possible signs of acute cholecystitis. The patient's lab work revealed a normal white blood cell count with an elevation in her AST, ALT and alkaline phosphatase within normal bilirubin. She was subsequently admitted for observation to the surgical service. Initially the surgeon Dr. Rios had a discussion with the patient and her daughter about treatment with laparoscopic cholecystectomy versus cholecystostomy tube in the patient and her daughter elected to go with a laparoscopic cholecystectomy. The laparoscopic cholecystectomy was performed on 04/03/2017 for acute cholecystitis. The procedure went without any complications and had minimal blood loss. Postoperatively the patient pain was controlled and she seemed to be doing well, she tolerated a diet and appeared to have good bowel sounds therefore she was discharged home on 04/03/2017. The patient returned to the emergency department on 04/05/2017 as she was having epigastric abdominal pain with nausea and was unable to tolerate much p.o. intake. Patient was found to be febrile by EMS and then was also febrile on arrival to the emergency department with a temperature of 38.5. The patient stated that she had had very minimal urine output since discharge from the hospital and stated that she was only urinating small dribbles. On examination the patient appeared to be very dehydrated as she had dry mucous membranes with very concentrated urine. The patient's blood pressure was initially stable but gradually dropped over the course of this hospitalization. The patient's lab work revealed a normal white blood cell count with elevated total bilirubin of 2.2, elevated AST 112, elevated ALT 154, and an elevated alk phos 234. The patient's urinalysis was normal. The patient's chest x-ray revealed upper right chest wall subcutaneous emphysema, extending down to the axilla, otherwise an unremarkable single view chest. The patient's abdominal ultrasound was limited by bowel gas and intra-abdominal air from her surgery therefore the patient underwent a CT of her abdomen and pelvis which showed interval laparoscopic cholecystectomy with periumbilical fat stranding and widespread abdominal wall emphysema. Tiny effusions. No abscess or acute abnormality to explain a postop fever. Due to the patient's hypotension and mild hypoxia patient also underwent a CT angiogram of her thorax to rule out a pulmonary embolism and this revealed no pulmonary embolism, no aortic aneurysm or dissection, tiny pleural effusions with mild bibasilar atelectasis and extensive right-sided subcutaneous emphysema extending to the supraclavicular region. The patient was given IV fluids and admitted to the intensive care unit as she was hypotensive and there was significant concern for her needing emergent surgery or having progression of her current condition. Although no obvious source was found for infection the patient was placed on broad-spectrum IV antibiotic with Zosyn. The patient was also given several liters of IV fluid and was being monitored closely in the ICU. The surgical team asked that we consult on the patient in regards to her hypotension, fever and abdominal pain to see if there was any further testing that needed to be performed. On speaking with the patient on 04/05/2017 the patient was in the intensive care unit and resting in her bed. She stated that her abdominal pain was improved since presentation to the emergency department. She stated that she had not had any further nausea since admission. She did complain of some chest pressure in the substernal area which she stated she does typically get and is usually acid reflux. She was quite sleepy but otherwise stated she had not had any further fevers since being admitted but did feel very cold. She denied any headaches, blurred vision, runny nose, sore throat, nasal congestion, she did admit to some mild cough, she did admit to fevers and chills , she stated her abdominal pain was better controlled, she stated that her nausea and vomiting were also better controlled, she denied any dysuria, urinary urgency, urinary frequency, joint swelling, joint pain, muscle aches, back pain, neck stiffness, diarrhea, or any focal neurologic deficits. History - Past Medical History Cardiovascular: reports: None, High cholesterol Respiratory: reports: None Neuro: reports: TIA, Seizure disorder Endocrine/Autoimmune: reports: None GI: reports: GERD : reports: None HEENT: reports: Chronic vision loss Psych: reports: None Musculoskeletal: reports: None Derm: reports: None MRSA Hx?: No Other Past Medical History: 1. Seizure disorder. 2. Urinary stress incontinence or cystocele/bladder prolapse. 3. 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 Patient's father at the age of 94 from old age. No family history of strokes or seizures. The patient has many family members who lived into their 90s. Living arrangement: At home Living Situation: With spouse/s.o. Social History Notes: The patient was born and raised in [facility]. 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 The patient is the primary caregiver for her who has progressing dementia. 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 The patient has 3 daughters one who lives in [place] one in [place] and one in [place]. The patient denies any tobacco alcohol or drug use. - Substance History Use: Uses substance without health or social issues: NONE Abuse: Recurrent use of substance despite neg consequences: NONE Dependence: Experiences withdrawal or developed tolerances: NONE - POLST Patient has POLST: Yes POLST Status: DNR Meds/Allgy - Home Medications Home Medications: Ambulatory Orders Medication Instructions Recorded Confirmed Clonazepam 0.125 mg PO BID 01/31/14 04/05/17 Aspirin [Adult Low Dose Aspirin EC] 81 mg PO DAILY #60 tablet. 02/25/17 Atorvastatin Calcium 40 mg PO QPM 04/03/17 04/05/17 - Allergies Allergies/Adverse Reactions: Allergies Allergy/AdvReac Type Severity Reaction Status Date / Time clopidogrel bisulfate * Allergy Itching Verified 04/05/17 12:34 [From Plavix] dipyridamole [From Aggrenox] Allergy Unknown Verified 04/05/17 12:34 gabapentin Allergy Emesis Verified 04/05/17 12:34 phenytoin sodium * Allergy Unknown Verified 04/05/17 12:34 [From Dilantin] phenytoin sodium extended * Allergy Unknown Verified 04/05/17 12:34 [From Dilantin] Review of Systems - Other Findings Other Findings: A comprehensive review of systems was performed the pertinent positives and negatives are stated above in the HPI and the remainder of the review of systems is negative. Exam - Vital Signs Reviewed Vital Signs: Yes Vital Signs: Vital Signs x48h Temp Pulse Pulse Resp BP BP Pulse Ox 04/05/17 20:00 37.3 C 70 13 87/51 L 100 04/05/17 19:48 76 22 105/57 L 100 04/05/17 18:10 36.9 C 77 13 102/68 100 04/05/17 18:04 36.9 C 04/05/17 17:31 36.9 C 71 16 94/48 L 99 - Physical Exam General Appearance: positive: Alert, Mild distress (Abdominal pain), Other ( Elderly, frail lady who feels very cold.) Eyes Bilateral: positive: Normal inspection, PERRL, EOMI, No lid inflammation, Conjunctivae nml, No scleral icterus ENT: positive: ENT inspection nml, Pharynx nml. negative: Purulent nasal drainage, Pharyngeal erythema, Oral lesions Neck: positive: Nml inspection, Thyroid nml, No JVD, Trachea midline. negative : Thyromegaly, Lymphadenopathy (R), Lymphadenopathy (L), Carotid bruit, Tracheal deviation Respiratory: positive: Chest non-tender, No respiratory distress, Rales (Mild bases). negative: Wheezes, Rhonchi Cardiovascular: positive: Regular rate & rhythm, No gallop, Systolic murmur Peripheral Pulses: positive: 2+ Abdomen: positive: No organomegaly, Tenderness (mostly in the right upper quadrant but diffusely tender), Guarding, Abnml bowel sounds (decreased). negative: Rebound, Hepatomegaly Back: positive: Nml inspection. negative: CVA tenderness (R), CVA tenderness (L ) Skin: positive: Color nml, No rash, Warm, Dry. negative: Cyanosis, Pallor Extremities: positive: Non-tender, Full ROM, Nml appearance, No pedal edema, Other (SubQ emphysema throughout from head and neck to toes there are small areas throughout) Neurologic/Psychiatric: positive: Oriented x3, CN's nml (2-12), Motor nml, Sensation nml Conclusion/Plan - Diagnosis Diagnosis: 1. Hypotension. 2. Abdominal Pain. 3. Fever. 4. Chest pain. 5. Subcutaneous Emphysema - Plan Plan: 1. The patient's hypotension is most likely secondary to dehydration. The patient likely became dehydrated due to her recent surgical procedure and subsequent decreased p.o. intake and nausea and vomiting since being discharged home. The patient had low urine output at home and had concentrated urine on presentation. As a result the patient's was hypotensive on presentation and has continued to be hypotensive since being admitted. It is also possible the patient's hypotension could be secondary to an infectious process. However so far the patient's infectious workup has been negative. She has a normal white blood cell count, her chest x-ray does not reveal any pneumonia, her urine analysis does not show evidence of UTI and since admission she has had no further fevers. The patient's abdominal CT did not reveal any abscess or new sign of infection. The patient does have an elevated bilirubin and LFTs postoperatively after a cholecystectomy. The patient had a recent echocardiogram and this is unlikely to be hypotension due to cardiogenic shock or an acute NM. If the patient's hypotension does continue despite hydration, antibiotics and she does not have any other source we would recommend a repeat echocardiogram. Continue IV fluid Continue antibiotics with Zosyn until blood cultures returned negative Consider MRCP to rule out acute cholangitis. Monitor patient closely in the intensive care unit. N.p.o. in case patient needs further surgical intervention. 2. The patient's abdominal pain is likely to be postoperative pain. The CT abdomen pelvis did not reveal any abscess or abnormality to suggest an acute intra-abdominal process. The patient's bilirubin and LFTs are mildly elevated. Plan: Continue IV antibiotics with Zosyn until blood cultures are negative MRCP if pain continues and bili continues to be elevated. Surgery on board 3. Patient presented with fever had a T-max of 38.5 in the emergency department. The patient does not have a leukocytosis and there was no obvious source of fever. Patient's chest x-ray was negative, UA was negative and abdominal CT was also negative. Patient also underwent a CT angios of the thorax to rule out a PE and that was also negative. The patient's fever is most likely a postop fever. Plan: Continue IV antibiotics with Zosyn and await blood cultures if blood cultures negative antibiotics can be discontinued Continue to monitor for further fever and any other signs of infection MRCP to rule out acute cholangitis. 4. Patient's chest pain appears to be chronic and likely due to acid reflux. Plan: Patient will be given famotidine and we will continue to monitor to see if the patient's chest pain does resolve. If patient continues to have chest pain and hypotension we will need to consider a repeat echocardiogram and full cardiac workup. Patient's CT angiogram thorax revealed no evidence of pulmonary embolism, aortic aneurysm or dissection. Patient's chest x-ray and CT did not reveal any evidence of pneumonia. Monitor on telemetry 5. The patient does have subcutaneous emphysema. This is evident on physical exam as she has crepitus under the skin all the way from her clavicular area, neck area down to her abdomen and lower extremity. Given the patient had recent intubation for her cholecystectomy this subcu emphysema is most likely secondary to barotrauma from the procedure. The patient does not have any evidence of pneumothorax, pulmonary interstitial emphysema, pneumopericardium or pneumoperitoneum. Plan: Supportive care with albuterol nebulizer as needed for shortness of air Incentive spirometer Oxygen as needed Monitoring - Lab Results Lab results reviewed: Yes Fish Bones: 04/05/17 12:50 04/05/17 12:50 Other Lab Results: Laboratory Results WBC 9.0 x10^3/uL (4.8-10.8) 04/05/17 12:50 RBC 3.90 10^6/uL (4.20-5.40) L 04/05/17 12:50 Hgb 12.7 g/dL (12.0-16.0) 04/05/17 12:50 Hct 37.7 % (37.0-47.0) 04/05/17 12:50 MCV 96.9 fL (81.0-99.0) 04/05/17 12:50 MCH 32.6 pg (27.0-31.0) H 04/05/17 12:50 MCHC 33.6 g/dL (32.0-36.0) 04/05/17 12:50 RDW 12.8 % (12.0-15.0) 04/05/17 12:50 Plt Count 170 10^3/uL (130-450) 04/05/17 12:50 MPV 8.1 fL (7.9-10.8) 04/05/17 12:50 Neut # 8.0 10^3/uL (1.5-6.6) H 04/05/17 12:50 Lymph # 0.1 10^3/uL (1.5-3.5) L 04/05/17 12:50 Shannon # 0.6 10^3/uL (0.0-1.0) 04/05/17 12:50 Eos # 0.2 10^3/uL (0.0-0.7) 04/05/17 12:50 Baso # 0.0 10^3/uL (0.0-0.1) 04/05/17 12:50 Absolute Nucleated RBC 0.00 x10^3/uL 04/05/17 12:50 Nucleated RBCs 0.0 /100WBC 04/05/17 12:50 Sodium 136 mmol/L (135-145) 04/05/17 12:50 Potassium 3.6 mmol/L (3.5-5.0) 04/05/17 12:50 Chloride 102 mmol/L (101-111) 04/05/17 12:50 Carbon Dioxide 25 mmol/L (21-32) 04/05/17 12:50 Anion Gap 9.0 (6-13) 04/05/17 12:50 BUN 11 mg/dL (6-20) 04/05/17 12:50 Creatinine 0.8 mg/dL (0.4-1.0) 04/05/17 12:50 Estimated GFR (MDRD) 68 (>89) L 04/05/17 12:50 Glucose 118 mg/dL (70-100) H 04/05/17 12:50 Lactic Acid 0.8 mmol/L (0.5-2.2) 04/05/17 12:50 Calcium 8.5 mg/dL (8.5-10.3) 04/05/17 12:50 Total Bilirubin 2.2 mg/dL (0.2-1.0) H 04/05/17 12:50 AST 112 IU/L (10-42) H 04/05/17 12:50 ALT 154 IU/L (10-60) H 04/05/17 12:50 Alkaline Phosphatase 234 IU/L (42-121) H 04/05/17 12:50 Total Protein 5.8 g/dL (6.7-8.2) L 04/05/17 12:50 Albumin 3.2 g/dL (3.2-5.5) 04/05/17 12:50 Globulin 2.6 g/dL (2.1-4.2) 04/05/17 12:50 Albumin/Globulin Ratio 1.2 (1.0-2.2) 04/05/17 12:50 Lipase 22 U/L (22-51) 04/05/17 12:50 Urine Color YELLOW 04/05/17 01:30 Urine Clarity CLEAR (CLEAR) 04/05/17 01:30 Urine pH 7.0 PH (5.0-7.5) 04/05/17 01:30 Ur Specific Cunningham 1.010 (1.002-1.030) 04/05/17 01:30 Urine Protein NEGATIVE mg/dL (NEGATIVE) 04/05/17 01:30 Urine Glucose (UA) NEGATIVE mg/dL (NEGATIVE) 04/05/17 01:30 Urine Ketones TRACE mg/dL (NEGATIVE) 04/05/17 01:30 Urine Occult Blood NEGATIVE (NEGATIVE) 04/05/17 01:30 Urine Nitrite NEGATIVE (NEGATIVE) 04/05/17 01:30 Urine Bilirubin NEGATIVE (NEGATIVE) 04/05/17 01:30 Urine Urobilinogen 0.2 (NORMAL) E.U./dL (NORMAL) 04/05/17 01:30 Ur Leukocyte Esterase NEGATIVE (NEGATIVE) 04/05/17 01:30 Ur Microscopic Review NOT INDICATED 04/05/17 01:30 Urine Culture Comments NOT INDICATED 04/05/17 01:30 - Diagnostic Imaging Results Diagnostic Imaging Results: positive: Final report reviewed Diagnostic Imaging Results Comments: CT abdomen and pelvis: Impression: Interval laparoscopic cholecystectomy with periumbilical fat stranding and widespread abdominal wall emphysema. Purdy catheter in place. Tiny effusions. No abscess or other acute abnormality to explain postoperative fever. Abdominal ultrasound: Impression: Study limited by bowel gas and intra-abdominal air from recent surgery and by patient pain. No unexpected postoperative findings are seen. Chest x-ray: Impression: Upper right chest wall subcutaneous emphysema, extending down to the axilla, otherwise unremarkable single view chest. CT angiogram thorax: Impression: 1. No pulmonary embolus. 2. No aortic aneurysm or dissection. 3. Tiny pleural effusions with mild bibasilar atelectasis. 4. Extensive right-sided subcutaneous emphysema extending to the supraclavicular region. - EKG Results EKG Interpreted Independently: Yes
[2017-04-05] MEDS ORDERED: SODIUM CHLORIDE 0.9% 50 ML IV ONE (20:34)
[2017-04-05] MEDS ORDERED: FAMOTIDINE 20 MG in SODIUM CHLORIDE 0.9% 50 ML IV SCH (21:00)
[2017-04-05] MEDS: PIPERACILLIN/TAZOBACTAM 3.375 GM in SODIUM CHLORIDE 0.9% MINIBAG 100 ML IV SCH (21:17)
[2017-04-05] MEDS: SODIUM CHLORIDE FLUSH 0.9% 10 ML SYRINGE IVP SCH (22:01)
[2017-04-06] MEDS: PIPERACILLIN/TAZOBACTAM 3.375 GM in SODIUM CHLORIDE 0.9% MINIBAG 100 ML IV SCH ×4 (03:11→20:44)
[2017-04-06 05:39] LABS: BASOPHILS % (AUTO) 0.2 %; EOSINOPHILS # (AUTO) 0.3 10^3/uL (0.0-0.7); EOSINOPHILS % (AUTO) 4.2 %; HCT - HEMATOCRIT 34.7 % (37.0-47.0); HGB - HEMOGLOBIN 11.6 g/dL (12.0-16.0); LYMPHOCYTES # (AUTO) 0.4 10^3/uL (1.5-3.5); LYMPHOCYTES % (AUTO) 4.9 %; MEAN CORPUSCULAR HEMOGLOBIN 32.8 pg (27.0-31.0); MEAN CORPUSCULAR HGB CONC 33.5 g/dL (32.0-36.0); MEAN CORPUSCULAR VOLUME 97.8 fL (81.0-99.0); MONOCYTES # (AUTO) 0.6 10^3/uL (0.0-1.0); MONOCYTES % (AUTO) 8.7 %; NEUTROPHILS # (AUTO) 5.9 10^3/uL (1.5-6.6); RED BLOOD COUNT 3.55 10^6/uL (4.20-5.40); RED CELL DISTRIBUTION WIDTH 13.2 % (12.0-15.0); UNCORRECTED WHITE BLOOD COUNT 7.2 x10^3/uL; WHITE BLOOD COUNT 7.2 x10^3/uL (4.8-10.8)
[2017-04-06 05:48] LABS: ALBUMIN/GLOBULIN RATIO 1.2 (1.0-2.2); BILIRUBIN,TOTAL 2.8 mg/dL (0.2-1.0); CALCIUM 7.7 mg/dL (8.5-10.3); CREATININE 0.8 mg/dL (0.4-1.0); POTASSIUM 3.4 mmol/L (3.5-5.0); TOTAL PROTEIN 4.8 g/dL (6.7-8.2)
[2017-04-06 06:03] LABS: MAGNESIUM 1.6 mg/dL (1.7-2.8)
[2017-04-06] MEDS: LACTATED RINGERS 1,000 ML IV SCH ×2 (06:18→22:59)
[2017-04-06] MEDS: SODIUM CHLORIDE FLUSH 0.9% 10 ML SYRINGE IVP SCH ×2 (06:18→16:45)
[2017-04-06] MEDS ORDERED: MAGNESIUM SULFATE 2 GRAM 50 ML IV ONE (06:32)
[2017-04-06] MEDS ORDERED: SODIUM CHLORIDE 0.9% 250 ML IV ONE (07:02)
[2017-04-06] MEDS: POTASSIUM CHLOR 10 MEQ/100 ML 100 ML IV SCH ×4 (07:05→12:29)
[2017-04-06] MEDS: MORPHINE 2 MG/ML SYRINGE IVP PRN (07:43)
--- NOTE | 2017-04-06 08:09 | PROVIDER PROGRESS NOTE ---
Subjective - Prog Note Date Prog Note Date: 04/06/17 Prog Note Time: 08:08 - Subjective Pt reports feeling: Improved Subjective: she has been hydrated and no other cause of hypotension found other than dehydration. walking in halls. eating. no infection seen but Dr. Rios is concerned about retained CBS Current Medications - Current Medications Current Medications: Active Medications Famotidine 20 mg/ Sodium (Chloride) 52 mls @ 100 mls/hr IV BID [facility] Last Admin: 04/05/17 20:41 Dose: 100 mls/hr Lactated Ringer's (Lr) 1,000 mls @ 100 mls/hr IV .Q10H [facility] Last Admin: 04/06/17 06:18 Dose: 100 mls/hr Piperacillin Sod/Tazobactam (Sod 3.375 gm/ Sodium Chloride) 100 mls @ 200 mls/ hr IV Q6H [facility] Last Admin: 04/06/17 03:11 Dose: 200 mls/hr Potassium Chloride (Potassium Chloride) 100 mls @ 100 mls/hr IV Q1H [facility] PRN Reason: Protocol Stop: 04/06/17 10:59 Last Admin: 04/06/17 07:05 Dose: 100 mls/hr Morphine Sulfate (Morphine) 2 mg IVP Q2H PRN PRN Reason: PAIN Last Admin: 04/06/17 07:43 Dose: 2 mg Sodium Chloride (Normal Saline Flush 0.9%) 10 ml IVP PRN PRN PRN Reason: NEEDED PER PROVIDER ORDERS Last Admin: 04/05/17 18:56 Dose: 10 ml Sodium Chloride (Normal Saline Flush 0.9%) 10 ml IVP Q8HR [facility] Last Admin: 04/06/17 06:18 Dose: 10 ml Clonazepam 0.125 mg PO BID 01/31/14 Atorvastatin Calcium 40 mg PO QPM 04/03/17 Objective - Vital Signs/Intake & Output Reviewed Vital Signs: Yes Vital Signs: Vital Signs x48h Temp Pulse Resp BP Pulse Ox 04/06/17 07:00 69 13 94/54 L 97 04/06/17 06:00 37.2 C 62 11 L 90/54 L 96 04/06/17 05:00 67 12 99/58 L 97 04/06/17 04:00 64 12 101/60 98 04/06/17 03:00 64 12 98/56 L 99 04/06/17 02:00 72 13 100/59 L 96 04/06/17 01:00 65 14 107/65 97 Intake & Output: Intake & Output 04/03/17 04/04/17 04/05/17 04/06/17 23:59 23:59 23:59 23:59 Intake Total 795 810 Output Total 698 256 Balance 97 554 - Objective General Appearance: positive: No acute distress, Alert, Other (tiny, slender quiet elderly female in NAD.) Eyes Bilateral: positive: PERRL, No scleral icterus ENT: positive: Pharynx nml Neck: positive: No JVD. negative: Stiff neck, Carotid bruit Respiratory: positive: Chest non-tender. negative: Wheezes, Rales, Rhonchi Cardiovascular: positive: Regular rate & rhythm. negative: Gallop/S4, Friction rub Abdomen: positive: Nml bowel sounds. negative: Guarding, Rebound Skin: positive: Warm, Dry Extremities: positive: No pedal edema (very slender arms and legs) Neurologic/Psychiatric: positive: Oriented x3, CN's nml (2-12), Motor nml (but diffusely weak) - Lab Results Fish Bones: 04/06/17 05:01 04/06/17 05:01 Other Labs: Lab Results x24hrs 04/06/17 04/06/17 04/06/17 Range/Units 05:01 05:01 05:01 WBC 7.2 (4.8-10.8) x10^3/uL RBC 3.55 L (4.20-5.40) 10^6/uL Hgb 11.6 L (12.0-16.0) g/dL Hct 34.7 L (37.0-47.0) % MCV 97.8 (81.0-99.0) fL MCH 32.8 H (27.0-31.0) pg MCHC 33.5 (32.0-36.0) g/dL RDW 13.2 (12.0-15.0) % Plt Count 142 (130-450) 10^3/uL MPV 9.0 (7.9-10.8) fL Neut # 5.9 (1.5-6.6) 10^3/uL Lymph # 0.4 L (1.5-3.5) 10^3/uL Blackford # 0.6 (0.0-1.0) 10^3/uL Eos # 0.3 (0.0-0.7) 10^3/uL Baso # 0.0 (0.0-0.1) 10^3/uL Absolute Nucleated RBC 0.00 x10^3/uL Nucleated RBCs 0.0 /100WBC Sodium 139 (135-145) mmol/L Potassium 3.4 L (3.5-5.0) mmol/L Chloride 107 (101-111) mmol/L Carbon Dioxide 22 (21-32) mmol/L Anion Gap 10.0 (6-13) BUN 10 (6-20) mg/dL Creatinine 0.8 (0.4-1.0) mg/dL Estimated GFR (MDRD) 68 L (>89) Glucose 82 (70-100) mg/dL Calcium 7.7 L (8.5-10.3) mg/dL Phosphorus 3.0 (2.5-4.6) mg/dL Magnesium 1.6 L (1.7-2.8) mg/dL Total Bilirubin 2.8 H (0.2-1.0) mg/dL AST 67 H (10-42) IU/L ALT 110 H (10-60) IU/L Alkaline Phosphatase 213 H (42-121) IU/L Troponin I (<0.49) ng/mL Total Protein 4.8 L (6.7-8.2) g/dL Albumin 2.6 L (3.2-5.5) g/dL Globulin 2.2 (2.1-4.2) g/dL Albumin/Globulin Ratio 1.2 (1.0-2.2) 04/05/17 Range/Units 21:39 WBC (4.8-10.8) x10^3/uL RBC (4.20-5.40) 10^6/uL Hgb (12.0-16.0) g/dL Hct (37.0-47.0) % MCV (81.0-99.0) fL MCH (27.0-31.0) pg MCHC (32.0-36.0) g/dL RDW (12.0-15.0) % Plt Count (130-450) 10^3/uL MPV (7.9-10.8) fL Neut # (1.5-6.6) 10^3/uL Lymph # (1.5-3.5) 10^3/uL Blackford # (0.0-1.0) 10^3/uL Eos # (0.0-0.7) 10^3/uL Baso # (0.0-0.1) 10^3/uL Absolute Nucleated RBC x10^3/uL Nucleated RBCs /100WBC Sodium (135-145) mmol/L Potassium (3.5-5.0) mmol/L Chloride (101-111) mmol/L Carbon Dioxide (21-32) mmol/L Anion Gap (6-13) BUN (6-20) mg/dL Creatinine (0.4-1.0) mg/dL Estimated GFR (MDRD) (>89) Glucose (70-100) mg/dL Calcium (8.5-10.3) mg/dL Phosphorus (2.5-4.6) mg/dL Magnesium (1.7-2.8) mg/dL Total Bilirubin (0.2-1.0) mg/dL AST (10-42) IU/L ALT (10-60) IU/L Alkaline Phosphatase (42-121) IU/L Troponin I < 0.04 (<0.49) ng/mL Total Protein (6.7-8.2) g/dL Albumin (3.2-5.5) g/dL Globulin (2.1-4.2) g/dL Albumin/Globulin Ratio (1.0-2.2) Assessment/Plan - Problem List (1) Hypotension Impression: from dehydration. we were consulted to make sure there was no other cause. we will sign off now. Improved and needs to be encouraged to eat and drink Discussed with Dr. Rios. Qualifiers: Hypotension type: orthostatic hypotension Qualified Code(s): I95.1 - Orthostatic hypotension
[2017-04-06] MEDS ORDERED: SODIUM CHLORIDE 0.9% 50 ML IV ONE (09:09)
[2017-04-06] MEDS: FAMOTIDINE 20 MG/50 ML 50 ML IV SCH ×2 (10:30→20:40)
--- NOTE | 2017-04-06 12:40 | MRI Preliminary Report ---
Exam: MRI MRCP W/O IMPRESSION: 1. Recent cholecystectomy with postoperative edema in the upper abdomen. No choledocholithiasis or bi liary ductal dilatation. No MR evidence for bile duct injury, allowing for postoperative changes. ( I f persistent clinical concern, HIDA scan could assess.) Hyperenhancement of common bile duct wall on abdominal CT prior day, question ascending cholangitis. 2. Small bilateral pleural effusions with adjacent atelectasis. [facility] SITE ID: [id number]
--- NOTE | 2017-04-06 12:43 | MRI Report ---
EXAM: MR ABDOMEN WITHOUT CONTRAST (MR CHOLANGIOPANCREATOGRAPHY) EXAM DATE: 04/06/2017 12:06 PM. CLINICAL HISTORY: S/p lap faizan, elevated bilirubin. COMPARISON: Abdominal CT with IV contrast prior day with history postoperative fever and abdominal pa in. TECHNIQUE: Multiplanar breath-hold T1 and T2 sequences obtained through the abdomen on an MR scanner. Dedicated 2D and 3D MRCP sequences obtained through the biliary and pancreatic ducts. No intravenous contrast given. Vertebral patient motion artifact. FINDINGS: Lung Bases: Trace bilateral pleural effusions with adjacent atelectasis. Liver: The liver has normal size, morphology and signal. No evidence of mass. The intrahepatic bile d ucts appear normal. CBD: The extrahepatic ducts appear normal. The CBD is mm in diameter. Gallbladder: Surgically absent. Postoperative edema within the upper abdomen. No drainable fluid astrid ection. Pancreas: The pancreas appears normal with no mass. The pancreatic duct measures 2-3 mm in diameter a nd appears normal with no stone or stricture. Spleen: The spleen appears normal. Kidneys and Adrenals: The kidneys appear normal with no mass or hydronephrosis. There are no cysts in the kidneys. The adrenals appear normal. Bowel: The small bowel and colon appear normal with no inflammation or obstruction. Retroperitoneum: The retroperitoneal structures appear normal with no mass or lymphadenopathy. IMPRESSION: 1. Recent cholecystectomy with postoperative edema in the upper abdomen. No choledocholithiasis or bi liary ductal dilatation. No MR evidence for bile duct injury, allowing for postoperative changes. ( I f persistent clinical concern, HIDA scan could assess.) Hyperenhancement of common bile duct wall on abdominal CT prior day, question ascending cholangitis. 2. Small bilateral pleural effusions with adjacent atelectasis. Exam discussed with Dr. Rios on day of study at 12:28 PM. [facility] Referring Provider Line: [phone] SITE ID: [id number]
--- NOTE | 2017-04-06 13:56 | PROVIDER PROGRESS NOTE ---
Subjective - General Admit Date: 04/05/17 Procedure Date: 04/03/17 Post Op Days: 3 Procedure Performed: laparoscopic cholecystectomy - Review of Systems Wound/Incisions: positive: Healing well General: positive: Other (Lethargy and mailase improved. Patient has ambulated with assistance. No fevers overnight. BP stable) Pulmonary: negative: Shortness of breath, Pleuritic chest pain Cardiovascular: negative: Chest pain, Dyspnea on exertion, Edema Gastrointestinal: positive: Other (mild epigastric pain. no nausea, no emesis.) Genitourinary: positive: No symptoms Psychiatric: positive: No symptoms. negative: Confusion, Anxiety - Other Other Information/Narrative: Patient has remained afebrile and hemodynamically stable overnight. Her Bilirubin has increased from 2.2 to 2.8. WBC remains normal. Objective - Patient Data Reviewed Vital Signs: Yes Vital Signs: Vital Signs x48h Temp Pulse Resp BP Pulse Ox 04/06/17 12:00 67 14 90/52 L 96 04/06/17 10:00 64 11 L 82/47 L 98 04/06/17 09:00 37.2 C 61 13 85/51 L 97 04/06/17 08:00 65 12 100/60 96 04/06/17 07:00 69 13 94/54 L 97 04/06/17 06:00 37.2 C 62 11 L 90/54 L 96 Weight: Weight 04/04/17 04/05/17 04/06/17 23:59 23:59 23:59 Weight (kg) 58.5 kg 60.5 kg Intake & Output: Intake and Output Totals x24h 04/04/17 04/05/17 04/06/17 23:59 23:59 23:59 Intake Total 795 1310 Output Total 698 361 Balance 97 949 - Lab Results Lab Results: 04/06/17 05:01 04/06/17 05:01 Other Lab Results: Lab Results x24hrs 04/06/17 04/06/17 04/06/17 Range/Units 05:01 05:01 05:01 WBC 7.2 (4.8-10.8) x10^3/uL RBC 3.55 L (4.20-5.40) 10^6/uL Hgb 11.6 L (12.0-16.0) g/dL Hct 34.7 L (37.0-47.0) % MCV 97.8 (81.0-99.0) fL MCH 32.8 H (27.0-31.0) pg MCHC 33.5 (32.0-36.0) g/dL RDW 13.2 (12.0-15.0) % Plt Count 142 (130-450) 10^3/uL MPV 9.0 (7.9-10.8) fL Neut # 5.9 (1.5-6.6) 10^3/uL Lymph # 0.4 L (1.5-3.5) 10^3/uL [place] # 0.6 (0.0-1.0) 10^3/uL Eos # 0.3 (0.0-0.7) 10^3/uL Baso # 0.0 (0.0-0.1) 10^3/uL Absolute Nucleated RBC 0.00 x10^3/uL Nucleated RBCs 0.0 /100WBC Sodium 139 (135-145) mmol/L Potassium 3.4 L (3.5-5.0) mmol/L Chloride 107 (101-111) mmol/L Carbon Dioxide 22 (21-32) mmol/L Anion Gap 10.0 (6-13) BUN 10 (6-20) mg/dL Creatinine 0.8 (0.4-1.0) mg/dL Estimated GFR (MDRD) 68 L (>89) Glucose 82 (70-100) mg/dL Calcium 7.7 L (8.5-10.3) mg/dL Phosphorus 3.0 (2.5-4.6) mg/dL Magnesium 1.6 L (1.7-2.8) mg/dL Total Bilirubin 2.8 H (0.2-1.0) mg/dL AST 67 H (10-42) IU/L ALT 110 H (10-60) IU/L Alkaline Phosphatase 213 H (42-121) IU/L Troponin I (<0.49) ng/mL Total Protein 4.8 L (6.7-8.2) g/dL Albumin 2.6 L (3.2-5.5) g/dL Globulin 2.2 (2.1-4.2) g/dL Albumin/Globulin Ratio 1.2 (1.0-2.2) 04/05/17 Range/Units 21:39 WBC (4.8-10.8) x10^3/uL RBC (4.20-5.40) 10^6/uL Hgb (12.0-16.0) g/dL Hct (37.0-47.0) % MCV (81.0-99.0) fL MCH (27.0-31.0) pg MCHC (32.0-36.0) g/dL RDW (12.0-15.0) % Plt Count (130-450) 10^3/uL MPV (7.9-10.8) fL Neut # (1.5-6.6) 10^3/uL Lymph # (1.5-3.5) 10^3/uL [place] # (0.0-1.0) 10^3/uL Eos # (0.0-0.7) 10^3/uL Baso # (0.0-0.1) 10^3/uL Absolute Nucleated RBC x10^3/uL Nucleated RBCs /100WBC Sodium (135-145) mmol/L Potassium (3.5-5.0) mmol/L Chloride (101-111) mmol/L Carbon Dioxide (21-32) mmol/L Anion Gap (6-13) BUN (6-20) mg/dL Creatinine (0.4-1.0) mg/dL Estimated GFR (MDRD) (>89) Glucose (70-100) mg/dL Calcium (8.5-10.3) mg/dL Phosphorus (2.5-4.6) mg/dL Magnesium (1.7-2.8) mg/dL Total Bilirubin (0.2-1.0) mg/dL AST (10-42) IU/L ALT (10-60) IU/L Alkaline Phosphatase (42-121) IU/L Troponin I < 0.04 (<0.49) ng/mL Total Protein (6.7-8.2) g/dL Albumin (3.2-5.5) g/dL Globulin (2.1-4.2) g/dL Albumin/Globulin Ratio (1.0-2.2) - Imaging Results Radiology Imaging: positive: Discussed with rads (MRCP performed and detects on retained CBD stones. No fluid in gallbladder fossa. Mild edema of CBD witout intraor extrahepatic dilitation) - Current Medications Current Medications: Current Medications Generic Name Dose Route Start Last Admin Trade Name Aldo PRN Reason Stop Dose Admin Lactated Ringer's 1,000 mls @ 100 mls/hr 04/05/17 18:00 04/06/17 06:18 Lr IV 100 mls/hr .Q10H MODESTO Administration Piperacillin Sod/Tazobactam 100 mls @ 200 mls/hr 04/05/17 21:00 04/06/17 09:25 Sod 3.375 gm/ Sodium Chloride IV 200 mls/hr Q6H MODESTO Administration Morphine Sulfate 2 mg 04/05/17 17:13 04/06/17 07:43 Morphine IVP 2 mg Q2H PRN Administration PAIN Sodium Chloride 10 ml 04/05/17 17:10 04/05/17 18:56 Normal Saline Flush 0.9% IVP 10 ml PRN PRN Administration NEEDED PER PROVIDER ORDERS Sodium Chloride 10 ml 04/05/17 22:00 04/06/17 06:18 Normal Saline Flush 0.9% IVP 10 ml Q8HR MODESTO Administration - Physical Exam Wound/Incisions: positive: Dressing dry and intact General Appearance: positive: No acute distress Respiratory: positive: No respiratory distress Cardiovascular: positive: Regular rate & rhythm Abdomen: positive: Non-tender, No distention, Other (well healing abdominal incisions) Extremities: positive: No pedal edema Neurologic/Psychiatric: positive: Oriented x3 Impression/Plan - Problem List Problem List: s/p lap faizan with hypotension, dehydration, hyperbilirubinemia, possible ascending cholangitis - MRCP performed and no retained stone was noted. Due to the increasing bilirubin a HIDA scan has been ordered to evaluate flow of bile into duodenum. - Patient will remain NPO until etiology of hyperbilirubinemia is obtained. - Continue fluid resuscitation, Continue Zosyn - Monitor UOP. Purdy in place - discussed plan with patient and family.
[2017-04-07] MEDS: SODIUM CHLORIDE FLUSH 0.9% 10 ML SYRINGE IVP SCH ×3 (01:57→15:25)
[2017-04-07] MEDS: PIPERACILLIN/TAZOBACTAM 3.375 GM in SODIUM CHLORIDE 0.9% MINIBAG 100 ML IV SCH ×4 (02:55→20:58)
[2017-04-07] MEDS: MORPHINE 2 MG/ML SYRINGE IVP PRN ×2 (04:06→23:47)
[2017-04-07 05:37] LABS: BILIRUBIN,TOTAL 3.5 mg/dL (0.2-1.0); CALCIUM 7.9 mg/dL (8.5-10.3); CREATININE 0.7 mg/dL (0.4-1.0); PHOSPHORUS 1.9 mg/dL (2.5-4.6); POTASSIUM 3.7 mmol/L (3.5-5.0); TOTAL PROTEIN 4.6 g/dL (6.7-8.2)
[2017-04-07 06:11] LABS: BASOPHILS % (AUTO) 0.2 %; EOSINOPHILS # (AUTO) 0.7 10^3/uL (0.0-0.7); EOSINOPHILS % (AUTO) 9.7 %; HCT - HEMATOCRIT 34.3 % (37.0-47.0); HGB - HEMOGLOBIN 11.7 g/dL (12.0-16.0); LYMPHOCYTES # (AUTO) 0.7 10^3/uL (1.5-3.5); LYMPHOCYTES % (AUTO) 9.7 %; MEAN CORPUSCULAR HEMOGLOBIN 33.2 pg (27.0-31.0); MEAN CORPUSCULAR HGB CONC 34.1 g/dL (32.0-36.0); MEAN CORPUSCULAR VOLUME 97.5 fL (81.0-99.0); MEAN PLATELET VOLUME 8.7 fL (7.9-10.8); MONOCYTES # (AUTO) 0.8 10^3/uL (0.0-1.0); MONOCYTES % (AUTO) 10.5 %; NEUTROPHILS # (AUTO) 5.4 10^3/uL (1.5-6.6); NEUTROPHILS % (AUTO) 69.9 %; RED BLOOD COUNT 3.52 10^6/uL (4.20-5.40); RED CELL DISTRIBUTION WIDTH 13.1 % (12.0-15.0); UNCORRECTED WHITE BLOOD COUNT 7.7 x10^3/uL; WHITE BLOOD COUNT 7.7 x10^3/uL (4.8-10.8)
[2017-04-07] MEDS: FAMOTIDINE 20 MG/50 ML 50 ML IV SCH ×2 (09:30→20:58)
--- NOTE | 2017-04-07 09:56 | Nuclear Medicine Prelim Report ---
Exam: NM Hepatobiliary HIDA w/o Rx IMPRESSION: 1. Relatively prompt uptake of activity by the liver, but severely reduced and delayed excretion with only some minimal bowel excretion seen at 19 hours. Most consistent with underlying liver disease. 2. No visualization of bile ducts out to 19 hours. [facility] SITE ID: [id number]
--- NOTE | 2017-04-07 09:58 | Nuclear Medicine Report ---
EXAM: HEPATOBILIARY SCAN EXAM DATE: 04/06/2017 01:03 PM. CLINICAL HISTORY: Recent laparoscopic cholecystectomy. Hyperbilirubinemia. COMPARISON: 04/06/2017. TECHNIQUE: Following the intravenous administration of 8.3 mCi of Tc99m Mebrofenin, a hepatobiliary s can was done centered on the liver and gallbladder in multiple sequential images and projections. Additional delayed imaging obtained out to 19 hours. FINDINGS: There is prompt uptake of activity by the liver, although somewhat heterogeneous uptake wit h some relative decrease in the left hepatic lobe. After 1 hour, there is no evidence of biliary excretion and neither the bile ducts nor bowel are visu alized. Gallbladder absent. On 4 hour delay, there is persistent uptake by the liver with no excretion. On 19 hour delay, there is some minimal excretion into bowel with visualization of distal small bowel and colon. However, still persistent moderate liver activity. Bile ducts are nonvisualized. No evidence of extravagation of contrast to suggest leak. IMPRESSION: 1. Relatively prompt uptake of activity by the liver, but severely reduced and delayed excretion with only some minimal bowel excretion seen at 19 hours. Most consistent with underlying liver disease. 2. No visualization of bile ducts out to 19 hours. [facility] Referring Provider Line: [phone] SITE ID: [id number]
--- NOTE | 2017-04-07 10:18 | HISTORY & PHYSICAL EXAMINATION ---
DATE OF ADMISSION: 04/05/2017 REASON FOR ADMISSION: Dehydration, hypertension, possible sepsis. HISTORY OF PRESENT ILLNESS: This is an 86-year-old female who presented to the emergency department on 04/02/2017 for right upper quadrant pain. She was subsequently noted to have acalculous cholecystitis. The following morning she was taken to the operating room for laparoscopic cholecystectomy. The procedure went without difficulties, and the patient recovered well. She was discharged home that evening. Upon discharge to her home, she was doing well, tolerating a regular diet on postoperative day #1, but on postoperative day #2, the daughter called my office reporting that the patient was more weak and had been vomiting all morning and was unable to take anything orally. I instructed the patient to go to the emergency department for evaluation. Upon evaluation in the emergency department, her white blood cell count was noted to be normal. She was noted to be hypotensive with a systolic blood pressure in the 70s. She was fluid resuscitated with 2 L of crystalloids and responded well. Her LFTs were also drawn, which were noted to be increased from her discharge. Her total bilirubin upon discharge from the hospital was 1.1, and on reevaluation today is 2.2. Her AST has decreased from 255 on discharge to 112. ALT has decreased from 230 on discharge to 154. Alkaline phosphatase has increased from discharge of 125 to 234. Subsequently, an ultrasound of the right upper quadrant was performed. This did not demonstrate any fluid in the gallbladder fossa but did demonstrate some free air under the liver. Due to this and her hypotension, a CT scan of the abdomen and pelvis was performed. This demonstrated a significant amount of subcutaneous emphysema and a minimal amount of free air in the gallbladder fossa. Otherwise, no free fluid was noted, and the common bile duct was noted to be 4 mm. On my evaluation of the patient, she is resting in bed comfortably. She denies abdominal pain. She is mentating well. 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 PAST SURGICAL HISTORY: Hysterectomy in the past, appendectomy in the past and recent laparoscopic cholecystectomy. FAMILY HISTORY: The patient is . Her is demented, and she is his primary care provider. Her daughter is visiting from out of town and has been staying with her and is present at the bedside. SOCIAL HISTORY: The patient does not smoke or drink. PHYSICAL EXAMINATION VITAL SIGNS: Temperature is 37.0, blood pressure 105/52, heart rate of 75, respiratory rate 16. O2 saturation is 97% on room air. GENERAL: The patient is awake, alert, oriented x3, in no acute distress. She is thin. CARDIOVASCULAR: Regular rate and rhythm. CHEST: Clear to auscultation bilaterally with no rhonchi or wheezing. ABDOMEN: Soft and nondistended. It is nontender to light palpation with no guarding and no rigidity. There are no peritoneal signs. EXTREMITIES: Are nonedematous and appear well perfused. LABORATORY VALUES: Are as follows: White blood cell count 9.0, hemoglobin 12.7, hematocrit 37.7, platelets 170. Sodium 136, potassium 3.6, chloride 102, bicarbonate 25, BUN 11, creatinine 0.8, lactate 0.8, total bilirubin 2.2, AST 112, ALT 154, alkaline phosphatase 234. Troponin 0.04. UA is negative. ASSESSMENT: This is an 86-year-old female status post laparoscopic cholecystectomy with hypotension, dehydration and possible sepsis. PLAN: There is concern for a possible retained common bile duct stone as the etiology of her symptoms. Alternatively, this could be associated with dehydration. The patient will be admitted to the ICU service and will be closely monitored. She will be prophylactically placed on Zosyn. She has 2 large bore IVs and is receiving fluid resuscitation. If required, fluid boluses will be administered. Currently, she is hemodynamically stable at her baseline blood pressure. Serial abdominal exams will continue. A repeat liver panel and white blood cell count will be performed tomorrow. If there remains increase in her LFTs, an MRCP will be performed to evaluate her common bile duct. A medical consultation will be obtained for ICU management. JOB #: [id number] EXT JOB #:[id number]
[2017-04-07] MEDS ORDERED: ONDANSETRON 4 MG/2 ML VIAL IVP PRN (11:10)
[2017-04-07] MEDS: NEUTRA-PHOS 250 MG TABLET PO SCH ×2 (11:15→14:04)
[2017-04-07] MEDS: LACTATED RINGERS 1,000 ML IV SCH ×2 (13:00→23:48)
--- NOTE | 2017-04-07 13:42 | PROVIDER PROGRESS NOTE ---
Subjective - General Admit Date: 04/05/17 Procedure Date: 04/03/17 Post Op Days: 4 Procedure Performed: laparoscopic cholecystectomy - Review of Systems Wound/Incisions: positive: Dressing dry and intact General: positive: Other (Lethargy and mailase improved. Patient has ambulated with assistance. No fevers overnight. BP stable) Pulmonary: negative: Shortness of breath, Pleuritic chest pain Cardiovascular: negative: Chest pain, Dyspnea on exertion, Edema Gastrointestinal: positive: Nausea, Other (mild epigastric pain. no emesis.) Genitourinary: positive: No symptoms Psychiatric: positive: No symptoms. negative: Confusion, Anxiety Objective - Patient Data Vital Signs: Vital Signs x48h Temp Pulse Resp BP Pulse Ox 04/07/17 13:00 60 11 L 107/80 95 04/07/17 12:00 68 18 117/68 96 04/07/17 11:00 67 12 125/78 99 04/07/17 10:00 56 L 13 125/68 97 04/07/17 08:56 36.6 C 60 12 129/82 H 97 04/07/17 07:00 60 14 98/66 04/07/17 06:00 58 L 12 101/63 Weight: Weight 04/05/17 04/06/17 04/07/17 23:59 23:59 23:59 Weight (kg) 58.5 kg 60.5 kg 62.4 kg Intake & Output: Intake and Output Totals x24h 04/05/17 04/06/17 04/07/17 23:59 23:59 23:59 Intake Total 795 2340 1510 Output Total 603 778 2936 Balance 97 1384 325 - Lab Results Lab Results: 04/07/17 05:02 04/07/17 05:02 Other Lab Results: Lab Results x24hrs 04/07/17 04/07/17 Range/Units 05:02 05:02 WBC 7.7 (4.8-10.8) x10^3/uL RBC 3.52 L (4.20-5.40) 10^6/uL Hgb 11.7 L (12.0-16.0) g/dL Hct 34.3 L (37.0-47.0) % MCV 97.5 (81.0-99.0) fL MCH 33.2 H (27.0-31.0) pg MCHC 34.1 (32.0-36.0) g/dL RDW 13.1 (12.0-15.0) % Plt Count 149 (130-450) 10^3/uL MPV 8.7 (7.9-10.8) fL Neut # 5.4 (1.5-6.6) 10^3/uL Lymph # 0.7 L (1.5-3.5) 10^3/uL [place] # 0.8 (0.0-1.0) 10^3/uL Eos # 0.7 (0.0-0.7) 10^3/uL Baso # 0.0 (0.0-0.1) 10^3/uL Absolute Nucleated RBC 0.00 x10^3/uL Nucleated RBCs 0.0 /100WBC Sodium 136 (135-145) mmol/L Potassium 3.7 (3.5-5.0) mmol/L Chloride 107 (101-111) mmol/L Carbon Dioxide 21 (21-32) mmol/L Anion Gap 8.0 (6-13) BUN 11 (6-20) mg/dL Creatinine 0.7 (0.4-1.0) mg/dL Estimated GFR (MDRD) 80 L (>89) Glucose 86 (70-100) mg/dL Calcium 7.9 L (8.5-10.3) mg/dL Phosphorus 1.9 L (2.5-4.6) mg/dL Magnesium 2.0 (1.7-2.8) mg/dL Total Bilirubin 3.5 H (0.2-1.0) mg/dL AST 76 H (10-42) IU/L ALT 101 H (10-60) IU/L Alkaline Phosphatase 287 H (42-121) IU/L Total Protein 4.6 L (6.7-8.2) g/dL Albumin 2.3 L (3.2-5.5) g/dL Globulin 2.3 (2.1-4.2) g/dL Albumin/Globulin Ratio 1.0 (1.0-2.2) - Imaging Results Radiology Imaging: positive: Discussed with rads (HIDA scan demonstrates markedly delayed transit of radiotracer into bileducts with eventual emptying into duodenum after 24 hours. No evidece of CBD stones or ductal injury. Consistent with intrinsic liver disorder.) - Current Medications Current Medications: Current Medications Generic Name Dose Route Start Last Admin Trade Name Freq PRN Reason Stop Dose Admin Lactated Ringer's 1,000 mls @ 100 mls/hr 04/05/17 18:00 04/06/17 22:59 Lr IV 100 mls/hr .Q10H MODESTO Administration Piperacillin Sod/Tazobactam 100 mls @ 200 mls/hr 04/05/17 21:00 04/07/17 09:31 Sod 3.375 gm/ Sodium Chloride IV 200 mls/hr Q6H MODESTO Administration Famotidine 50 mls @ 100 mls/hr 04/06/17 10:00 04/07/17 09:30 Pepcid 20 Mg/50 Ml IV 100 mls/hr BID MODESTO Administration Morphine Sulfate 2 mg 04/05/17 17:13 04/07/17 04:06 Morphine IVP 2 mg Q2H PRN Administration PAIN Ondansetron HCl 4 mg 04/07/17 11:10 04/07/17 11:23 Zofran Inj IVP 4 mg Q6HR PRN Administration Nausea / Vomiting Sodium Chloride 10 ml 04/05/17 17:10 04/05/17 18:56 Normal Saline Flush 0.9% IVP 10 ml PRN PRN Administration NEEDED PER PROVIDER ORDERS Sodium Chloride 10 ml 04/05/17 22:00 04/07/17 06:55 Normal Saline Flush 0.9% IVP 10 ml Q8HR MODESTO Administration - Physical Exam Wound/Incisions: positive: Healing well Respiratory: positive: No respiratory distress Cardiovascular: positive: Regular rate & rhythm Abdomen: positive: Non-tender, No distention Extremities: positive: No pedal edema Neurologic/Psychiatric: positive: Oriented x3 Impression/Plan - Problem List Problem List: Hyperbilirubinemia s/p lap faizan POD 4. 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 - DC trivedi - ADAT - monitor LFT's - Hepatitis panel ordered.
[2017-04-07] MEDS ORDERED: POLYETHYLENE GLYCOL 3350 17 GM PACKET ONE (15:27)
[2017-04-07] MEDS: clonazePAM 0.5 MG TABLET PO ONE ×2 (17:28→18:59)
[2017-04-08] MEDS: PIPERACILLIN/TAZOBACTAM 3.375 GM in SODIUM CHLORIDE 0.9% MINIBAG 100 ML IV SCH ×2 (03:57→09:24)
[2017-04-08] MEDS: LACTATED RINGERS 1,000 ML IV SCH ×2 (04:06→11:35)
[2017-04-08] MEDS: clonazePAM 0.5 MG TABLET PO SCH ×2 (04:08→09:25)
[2017-04-08] MEDS: SODIUM CHLORIDE FLUSH 0.9% 10 ML SYRINGE IVP SCH ×2 (04:08→11:36)
[2017-04-08 06:37] LABS: BILIRUBIN,TOTAL 2.8 mg/dL (0.2-1.0); CALCIUM 7.9 mg/dL (8.5-10.3); CREATININE 0.7 mg/dL (0.4-1.0); MAGNESIUM 1.9 mg/dL (1.7-2.8); PHOSPHORUS 2.2 mg/dL (2.5-4.6); POTASSIUM 3.5 mmol/L (3.5-5.0); TOTAL PROTEIN 4.5 g/dL (6.7-8.2)
[2017-04-08] MEDS ORDERED: NEUTRA-PHOS 250 MG TABLET PO SCH (08:00)
[2017-04-08] MEDS ORDERED: SENNA 8.6 MG TABLET PO SCH (09:00)
[2017-04-08] MEDS ORDERED: POLYETHYLENE GLYCOL 3350 17 GM PACKET PO SCH (09:00)
[2017-04-08] MEDS: FAMOTIDINE 20 MG/50 ML 50 ML IV SCH (09:24)
--- NOTE | 2017-04-08 10:03 | Discharge Plan ---
Discharge Plan Disposition: Home, Self Care Condition: Fair Prescriptions: Amox/Clav 875/125 [Augmentin] 1 each PO Q12H #14 tablet Senna [Senokot] 8.6 - 17.2 mg PO DAILY #30 tablet Diet: Regular Activity Restrictions: Activity as Tolerated Shower Restrictions: No Driving Restrictions: No Weight Bearing: Full Weight No Smoking: If you smoke, Please STOP! Call for help. Follow-up with: Sarabjit Lambert MD [Primary Care Provider] - 1 Week KIKI GRAHAM MD [Provider Admit Priv/Credential] - 2 Weeks Hannah Obando MD [Provider Admit Priv/Credential] - 1 Week
[2017-04-08 10:39] LABS: PT - PROTHROMBIN TIME 11.4 secs (9.9-12.6)
[2017-04-08 13:56] VITALS: BP 116/72
--- NOTE | 2017-04-21 18:27 | DISCHARGE SUMMARY ---
DATE OF ADMISSION: 04/05/2017 DATE OF DISCHARGE: 04/08/2017 REASON FOR ADMISSION: Transaminitis and hypotension and dehydration. HOSPITAL COURSE: This is an 86-year-old female who was admitted through the emergency department 2 da ys after having undergone an uneventful laparoscopic cholecystectomy. Upon evaluation in the emergenc y department, she was noted to be very dehydrated and hypotensive. She was also noted to have elevate d liver enzymes. She subsequently underwent an ultrasound of the right upper quadrant and no fluid co llection was noted. She was admitted to the surgical service and was placed on broad spectrum antibio tics for concern for possible retained stone and cholangitis. The following day her liver enzymes con tinued to increase and an MRCP was performed. This did not demonstrate any retained stone or any evid ence of any injury to the biliary tree. Given her persistent elevation of liver enzymes subsequently a HIDA scan was performed, which also did not demonstrate any evidence of extra biliary fluid to petr amy any type of biliary injury. She did have very slow excretion of the radiotracer from her liver i ndicating intrinsic liver disorder. At this point, a medical consultation was obtained. The etiology of her transaminitis was unclear. Her bilirubin began to come down on the subsequent days and her tra nsaminitis improved. A consultation was made to the hepatobiliary service in [place] and they recomme nded that the patient was clinically improved to followup as an outpatient. She was tolerating a regu lar diet without any abdominal pain and with normalization of her blood pressure after IV fluid resus citation. She was stable for discharge on 04/08/2017 with improving liver enzymes and normal white bl ood cell count, and she was afebrile and mentating well. The patient was provided with an urgent foll owup with the GI service the following week as well as with her primary care provider, Dr. Lambert, on following Tuesday. Her LFTs were planned to be repeated on Tuesday. The patient was discharged to [facility] with her daughter for supportive care. The patient's condition on the discharge was fair. JOB #: [id number] EXT JOB #:[id number]
== END 2017-04-08 13:45 | disposition home or self-care (01) | DRG 315 ==
LOC: EDUNIT# → ED 12:26 → ICU 17:10
PROVIDERS: ADMIT Surgery; ATTEND Surgery
DX: I95.9 Hypotension, unspecified (principal); R17 Unspecified jaundice; R74.8 Abnormal levels of other serum enzymes; G40.901 Epilepsy, unspecified, not intractable, with status epilepticus; K21.9 Gastro-esophageal reflux disease without esophagitis; Z86.73 Personal history of transient ischemic attack (TIA), and cerebral infarction without residual deficits; Z79.82 Long term (current) use of aspirin; Z79.899 Other long term (current) drug therapy; K76.89 Other specified diseases of liver; E86.0 Dehydration; R50.82 Postprocedural fever; G89.18 Other acute postprocedural pain; T81.82XA Emphysema (subcutaneous) resulting from a procedure, initial encounter; K91.0 Vomiting following gastrointestinal surgery; N81.10 Cystocele, unspecified; R32 Unspecified urinary incontinence; Z66 Do not resuscitate
CPT/HCPCS: 36415; 51702; 51798; 71010; 71275; 74177; 74181; 76705; 78226; 80053; 80074; 81001; 81003; 83605; 83690; 83735; 84100; 84484; 85025; 85610; 87040; 87086; 87150; 93005; 96361; 96365; 96367; 96375; 99284

== ENCOUNTER 2017-04-14 15:55 | Outpatient (CLI) | payer MEDICARE, BC ==
[2017-04-14 19:33] LABS: BASOPHILS # (AUTO) 0.1 10^3/uL (0.0-0.1); BASOPHILS % (AUTO) 0.6 %; EOSINOPHILS % (AUTO) 10.1 %; HCT - HEMATOCRIT 38.3 % (37.0-47.0); HGB - HEMOGLOBIN 12.5 g/dL (12.0-16.0); LYMPHOCYTES # (AUTO) 2.5 10^3/uL (1.5-3.5); LYMPHOCYTES % (AUTO) 26.3 %; MEAN CORPUSCULAR HGB CONC 32.6 g/dL (32.0-36.0); MEAN CORPUSCULAR VOLUME 98.3 fL (81.0-99.0); MEAN PLATELET VOLUME 8.6 fL (7.9-10.8); MONOCYTES % (AUTO) 10.3 %; NEUTROPHILS % (AUTO) 52.7 %; RED CELL DISTRIBUTION WIDTH 13.6 % (12.0-15.0); UNCORRECTED WHITE BLOOD COUNT 9.5 x10^3/uL; WHITE BLOOD COUNT 9.5 x10^3/uL (4.8-10.8)
[2017-04-14 19:39] LABS: ALBUMIN/GLOBULIN RATIO 1.1 (1.0-2.2); BILIRUBIN,DIRECT 0.3 mg/dL (0.1-0.5); BILIRUBIN,TOTAL 0.9 mg/dL (0.2-1.0); CALCIUM 9.1 mg/dL (8.5-10.3); CREATININE 0.7 mg/dL (0.4-1.0); POTASSIUM 4.4 mmol/L (3.5-5.0); TOTAL PROTEIN 6.7 g/dL (6.7-8.2)
== END 2017-04-14 15:56 | disposition home or self-care (01) ==
LOC: LAB.WCP 15:55
PROVIDERS: ATTEND Internal Medicine
DX: R94.5 Abnormal results of liver function studies (principal)
CPT/HCPCS: 36415; 80053; 82248; 85025

== ENCOUNTER 2017-05-03 10:14 | Outpatient (CLI) | payer MEDICARE, BC ==
[2017-05-03 11:35] LABS: BILIRUBIN,DIRECT 0.2 mg/dL (0.1-0.5); BILIRUBIN,TOTAL 0.7 mg/dL (0.2-1.0); CHOL/HDL RATIO 2.9 (<4.4); CHOLESTEROL 200 mg/dL; HDL CHOLESTEROL 70 mg/dL; LDL/HDL RATIO 1.6 (<4.4); TRIGLYCERIDES 85 mg/dL; VLDL CHOLESTEROL 17 mg/dL
== END 2017-05-03 10:15 | disposition home or self-care (01) ==
LOC: LAB 10:14
PROVIDERS: ATTEND Nurse Practitioner Primary Care
DX: G45.9 Transient cerebral ischemic attack, unspecified (principal); E78.5 Hyperlipidemia, unspecified; Z79.899 Other long term (current) drug therapy; R94.5 Abnormal results of liver function studies
CPT/HCPCS: 36415; 80061; 80076

== ENCOUNTER 2017-08-29 11:25 | Outpatient (CLI) | payer MEDICARE, BC ==
--- NOTE | 2017-08-30 18:41 | Mammography Report ---
DIGITAL SCREENING MAMMOGRAM: 08/29/2017 CLINICAL INDICATION: An 86-year-old with family history of breast cancer for screening. COMPARISON: 07/2016, 07/2015, 07/2014, 06/2013, 05/2010. TECHNIQUE: Routine CC and MLO projections were obtained of the breasts. FINDINGS: Scattered fibroglandular tissue is present within the breasts. There are no dominant masses, suspicious microcalcifications, or secondary signs of malignancy. In comparison to the previous studies, there are no significant changes. ASSESSMENT: NO MAMMOGRAPHIC EVIDENCE OF MALIGNANCY. NO SIGNIFICANT INTERVAL CHANGES. RECOMMENDATION: Screening mammography is recommended annually. BIRADS category 1 - negative. STANDARD QUALIFYING STATEMENTS: 1. This examination was reviewed with the aid of Computed-Aided Detection (CAD). 2. A negative or benign imaging report should not delay biopsy if clinically suspicious findings are present. Consider surgical consultation if warranted. More than 5% of cancers are not identified by imaging. 3. Dense breasts may obscure an underlying neoplasm. TD: 08/30/2017 18:39
== END 2017-08-29 11:26 | disposition home or self-care (01) ==
LOC: DI 11:25
PROVIDERS: ATTEND Physician Assistant Medical
DX: Z12.31 Encounter for screening mammogram for malignant neoplasm of breast (principal); Z80.3 Family history of malignant neoplasm of breast
CPT/HCPCS: 77067

== ENCOUNTER 2018-11-22 07:21 | Outpatient (CLI) | payer MEDICARE, BC ==
--- NOTE | 2018-11-22 11:36 | Ultrasound Report ---
Reason: PULSATING ABDOMINAL MASS Procedure Date: 11/22/2018 Accession Number: [id number] / [id number] Procedure: US - Retroperitoneal CPT Code: FULL RESULT: EXAM: COMPLETE RETROPERITONEAL ULTRASOUND EXAM. EXAM DATE: 11/22/2018 07:38 AM. CLINICAL HISTORY: Pulsating abdominal mass. COMPARISON: None. TECHNIQUE: Real-time sonographic imaging of retroperitoneal vascular structures and retroperitoneal genitourinary system, including color-flow, Doppler flow and spectral analysis was performed by the concrete plant laborer. Multiple industrial sales representative static images were saved for review. FINDINGS: Aorta: The abdominal aorta was adequately visualized. No evidence for abdominal aortic aneurysm. Aorta: Proxima: Sagittal AP 2.45 cm. Mid: Transverse 2.2 x 2.2 cm. Distal: Transverse 1.4 x 1.8 cm. Caliber: WNL: Yes. Plaque visualized: Yes, mild. Iliac Vessels: Iliac vessels measure up to 1.9 cm on the right and up to 1.7 on the left, prominent size. The right kidney measures up to 9.4 cm in maximal sagittal dimension and demonstrates no contour deforming solid mass, no hydronephrosis and no calculi. The left kidney measures up to 8.2 cm in maximal sagittal dimension and demonstrates no solid contour deforming mass calculus or hydronephrosis. IVC unremarkable by ultrasound. The bladder demonstrates a prevoid volume of 237 cc and a postvoid volume of 35 cc and bilateral ureteral jets are identified. Incidental note is made of a pessary. IMPRESSION: No aortic aneurysm. Prominent size of bilateral iliac arteries, ectasia. Normal renal ultrasound. Please note that the distal abdominal aorta is sonographically close to the abdominal wall and likely easily palpable on physical examination. This may potentially explain the physical exam finding. [facility]
== END 2018-11-22 07:22 | disposition home or self-care (01) ==
LOC: DI 07:21
PROVIDERS: ATTEND Obstetrics & Gynecology
DX: R10.2 Pelvic and perineal pain (principal); I77.89 Other specified disorders of arteries and arterioles
CPT/HCPCS: 76770

== ENCOUNTER 2019-02-01 07:22 | Outpatient (CLI) | payer MEDICARE, BC ==
[2019-02-01 08:02] LABS: BASOPHILS # (AUTO) 0.1 10^3/uL (0.0-0.1); BASOPHILS % (AUTO) 0.9 %; EOSINOPHILS # (AUTO) 0.6 10^3/uL (0.0-0.7); EOSINOPHILS % (AUTO) 10.6 %; HGB - HEMOGLOBIN 13.2 g/dL (12.0-16.0); LYMPHOCYTES # (AUTO) 1.9 10^3/uL (1.5-3.5); LYMPHOCYTES % (AUTO) 34.1 %; MEAN CORPUSCULAR HEMOGLOBIN 32.2 pg (27.0-31.0); MEAN CORPUSCULAR HGB CONC 32.9 g/dL (32.0-36.0); MEAN CORPUSCULAR VOLUME 97.8 fL (81.0-99.0); MEAN PLATELET VOLUME 10.3 fL (7.9-10.8); MONOCYTES # (AUTO) 0.6 10^3/uL (0.0-1.0); MONOCYTES % (AUTO) 10.4 %; NEUTROPHILS # (AUTO) 2.4 10^3/uL (1.5-6.6); NEUTROPHILS % (AUTO) 43.6 %; PLT - PLATELET COUNT 222 10^3/uL (130-450); RED CELL DISTRIBUTION WIDTH 12.9 % (12.0-15.0); WHITE BLOOD COUNT 5.5 x10^3/uL (4.8-10.8)
[2019-02-01 08:27] LABS: ALBUMIN 3.8 g/dL (3.2-5.5); ALBUMIN/GLOBULIN RATIO 1.3 (1.0-2.2); ALKALINE PHOSPHATASE 73 IU/L (42-121); ALT ALANINE AMINOTRANSFERASE 17 IU/L (10-60); AST ASPARTATE AMINOTRANSFERASE 20 IU/L (10-42); BILIRUBIN,TOTAL 0.4 mg/dL (0.2-1.0); BUN - BLOOD UREA NITROGEN 19 mg/dL (6-20); CALCIUM 9.2 mg/dL (8.5-10.3); CARBON DIOXIDE - CO2 26 mmol/L (21-32); CHLORIDE 106 mmol/L (101-111); CHOL/HDL RATIO 2.5 (<4.4); CHOLESTEROL 194 mg/dL; CREATININE 0.9 mg/dL (0.4-1.0); GFR - MDRD 59 (>89); GLUCOSE 95 mg/dL (70-100); HDL CHOLESTEROL 77 mg/dL; LDL CHOLESTEROL,CALCULATED 105 mg/dL; LDL/HDL RATIO 1.4 (<4.4); SODIUM 141 mmol/L (135-145); TOTAL PROTEIN 6.7 g/dL (6.7-8.2); VLDL CHOLESTEROL 12 mg/dL
== END 2019-02-01 07:23 | disposition home or self-care (01) ==
LOC: LAB 07:22
PROVIDERS: ATTEND Nurse Practitioner
DX: G40.909 Epilepsy, unspecified, not intractable, without status epilepticus (principal); R94.5 Abnormal results of liver function studies; E78.5 Hyperlipidemia, unspecified; Z79.899 Other long term (current) drug therapy
CPT/HCPCS: 36415; 80053; 80061; 83721; 84443; 85025

== ENCOUNTER 2019-04-04 14:42 | Outpatient (CLI) | payer MEDICARE, BC ==
--- NOTE | 2019-04-05 16:29 | XRAY Report ---
Reason: HIP JOINT PAIN RIGHT AND LEFT Procedure Date: 04/04/2019 Accession Number: [id number] / [id number] Procedure: XR - Lumbar Spine 2 View CPT Code: FULL RESULT: EXAM: LUMBOSACRAL SPINE RADIOGRAPHY. EXAM DATE: 04/04/2019 02:57 PM. CLINICAL HISTORY: Hip joint pain right and left. COMPARISONS: XR LUMBOSACRAL SPINE 4 VIEWS 12/07/2006 10:05 AM. ABDOMEN/PELVIS W/ 04/05/2017 4:16 PM. TECHNIQUE: 2 views. FINDINGS: Alignment: Chronic minimal degenerative anterolisthesis of L4 on L5. Bones: Five udx-bxu-lkzbfis lumbar vertebral bodies are present. No acute fractures or bone lesions. Chronic T12 fracture again noted. Degenerative changes: Severe L5-S1 degenerative changes with disk height loss and facet DJD. Mild to moderate degenerative changes elsewhere throughout the lumbar spine. Soft Tissues: Tortuous lower thoracic aorta again noted. The visualized bowel gas pattern is normal. IMPRESSION: 1. Severe L5-S1 degenerative changes. 2. Chronic minimal degenerative anterolisthesis of L4 and L5. RADIA
--- NOTE | 2019-04-05 21:35 | XRAY Report ---
Reason: HIP JOINT PAIN RIGHT AND LEFT Procedure Date: 04/04/2019 Accession Number: [id number] / [id number] Procedure: XR - Hips 2V BILAT CPT Code: FULL RESULT: EXAM: BILATERAL HIP RADIOGRAPHY EXAM DATE: 04/04/2019 02:57 PM. CLINICAL HISTORY: Hip joint pain, right and left. COMPARISON: HIP W/PELVIS 2-3V LT 03/18/2016 11:15 AM ABDOMEN/PELVIS W/ 04/05/2017 4:16 PM. TECHNIQUE: 2 views each. FINDINGS: Bones: Previous left proximal femur ORIF with unremarkable-appearing surgical hardware. No new fractures or bone lesion. Hips: No malalignment. Mild to moderate right and mild left hip degenerative changes with joint space loss. Soft Tissues: Normal. No soft tissue swelling. IMPRESSION: Mild to moderate right and mild left hip degenerative changes. RADIA
== END 2019-04-04 14:43 | disposition home or self-care (01) ==
LOC: DI 14:42
PROVIDERS: ATTEND Nurse Practitioner
DX: M16.0 Bilateral primary osteoarthritis of hip (principal); M47.817 Spondylosis without myelopathy or radiculopathy, lumbosacral region
CPT/HCPCS: 72100; 73521

== ENCOUNTER 2019-08-10 09:46 | Emergency (ER) | payer MEDICARE, BC ==
[2019-08-10] MEDS ORDERED: SODIUM CHLORIDE 0.9% 1,000 ML IV ONE (10:14)
[2019-08-10 10:33] LABS: BASOPHILS % (AUTO) 0.6 %; EOSINOPHILS # (AUTO) 0.6 10^3/uL (0.0-0.7); EOSINOPHILS % (AUTO) 9.6 %; HGB - HEMOGLOBIN 13.4 g/dL (12.0-16.0); LYMPHOCYTES # (AUTO) 1.2 10^3/uL (1.5-3.5); LYMPHOCYTES % (AUTO) 19.4 %; MEAN CORPUSCULAR HEMOGLOBIN 31.5 pg (27.0-31.0); MEAN CORPUSCULAR HGB CONC 32.9 g/dL (32.0-36.0); MEAN CORPUSCULAR VOLUME 95.5 fL (81.0-99.0); MEAN PLATELET VOLUME 9.2 fL (7.9-10.8); MONOCYTES # (AUTO) 0.8 10^3/uL (0.0-1.0); MONOCYTES % (AUTO) 12.4 %; NEUTROPHILS # (AUTO) 3.7 10^3/uL (1.5-6.6); NEUTROPHILS % (AUTO) 57.5 %; PLT - PLATELET COUNT 252 10^3/uL (130-450); RED BLOOD COUNT 4.26 10^6/uL (4.20-5.40); RED CELL DISTRIBUTION WIDTH 12.3 % (12.0-15.0); WHITE BLOOD COUNT 6.4 x10^3/uL (4.8-10.8)
[2019-08-10 10:47] LABS: ALBUMIN 3.7 g/dL (3.2-5.5); ALBUMIN/GLOBULIN RATIO 1.4 (1.0-2.2); BILIRUBIN,TOTAL 0.7 mg/dL (0.2-1.0); CALCIUM 9.2 mg/dL (8.5-10.3); CREATININE 0.8 mg/dL (0.4-1.0); MAGNESIUM 2.2 mg/dL (1.7-2.8); TOTAL PROTEIN 6.4 g/dL (6.7-8.2)
--- NOTE | 2019-08-10 13:12 | ED Physician Documentation ---
PD HPI FOCAL NEURO - Stated complaint Stated Complaint: L ARM NUMB/SLURRED SPEECH - Chief complaint Chief Complaint: Neuro - History obtained from History obtained from: Patient - History of Present Illness Timing - onset: Today (1 1/2 hours ago, when awakening from bed) Timing - duration: Minutes (5-10) Timing - details: Abrupt onset (She got up from bed quickly to answer the phone and at the phone noted she had difficulty moving and controlling her left arm. She had been able to walk to the phone okay without any leg weakness. Talking on the phone she had some slight slurring of speech. The symptoms lasted about 5 to 10 minutes and then faded back to normal. She denied any headache with it. She is not clearly aware if the symptoms were present upon awakening versus developed as she got to the phone. She had had similar symptoms with a TIA a few years ago. She had intolerance of antiplatelet agents or higher dose aspirin and is just on a baby aspirin at this point.) Severity of deficit: Moderate Weakness: Face, Arm, Left. No: Leg Numbness: Arm, Left Associated symptoms: No: Headache, Nausea / vomiting, Syncope, Fall, Head injury Contributing factors: positive: Vascular dz (prior TIA 2017). negative: Anticoagulated, Atrial fibrillation Baseline status: positive: A&OX3, ambulatory, indep Similar symptoms before: Diagnosis (TIA, no prior CVA.) Recently seen: Not recently seen Review of Systems Constitutional: denies: Fever, Chills PD PAST MEDICAL HISTORY - Past Medical History Past Medical History: Yes Cardiovascular: None, High cholesterol Respiratory: None Neuro: None Endocrine/Autoimmune: HyPOthyroidism GI: GERD CHEMICAL MANAGER: None : None HEENT: Chronic vision loss Psych: None Musculoskeletal: None Derm: None - Past Surgical History Past Surgical History: Yes General: Appendectomy /CHEMICAL MANAGER: Hysterectomy - Present Medications Home Medications: Ambulatory Orders Medication Instructions Recorded Confirmed Clonazepam 0.125 mg PO BID 01/31/14 04/05/17 Aspirin [Adult Low Dose Aspirin EC] 81 mg PO DAILY #60 tablet. 02/25/17 04/06/17 Atorvastatin Calcium 40 mg PO QPM 04/03/17 04/05/17 Amox/Clav 875/125 [Augmentin] 1 each PO Q12H #14 tablet 04/08/17 Senna [Senokot] 8.6 - 17.2 mg PO DAILY #30 tablet 04/08/17 - Allergies Allergies/Adverse Reactions: Allergies Allergy/AdvReac Type Severity Reaction Status Date / Time clopidogrel bisulfate * Allergy Itching Verified 08/10/19 09:58 [From Plavix] dipyridamole [From Aggrenox] Allergy Unknown Verified 08/10/19 09:58 gabapentin Allergy Emesis Verified 08/10/19 09:58 phenytoin sodium * Allergy Unknown Verified 08/10/19 09:58 [From Dilantin] phenytoin sodium extended * Allergy Unknown Verified 08/10/19 09:58 [From Dilantin] - Social History Does the pt smoke?: No Smoking Status: Never smoker Does the pt drink ETOH?: No Does the pt have substance abuse?: No - Immunizations Immunizations are current?: No Immunizations: Other immun not current - POLST Patient has POLST: Yes POLST Status: DNR PD ED PE NORMAL - Vitals Vital signs reviewed: Yes - General General: Alert and oriented X 3, No acute distress, Well developed/nourished - HEENT HEENT: Atraumatic, Ears normal, Moist mucous membranes, Pharynx benign - Neck Neck: Supple, no meningeal sign, No adenopathy, No JVD - Cardiac Cardiac: RRR, No murmur - Respiratory Respiratory: Clear bilaterally - Derm Derm: Normal color, Warm and dry - Extremities Extremities: No tenderness to palpate, Normal ROM s pain, No edema, No calf tenderness / cord - Neuro Neuro: Alert and oriented X 3, 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, No motor deficit, No sensory deficit, Normal speech, Other NIHSS - Level of Consciousness Level of consciousness: (0) Alert, Keenly responsive LOC Questions: (0) Answers both Q's correct LOC Commands: (0) Performs both correctly - Gaze Best Gaze: (0) Normal - Visual Visual: (0) No loss - Facial Palsy Facial Palsy: (0) Normal, symmetrical movement - Motor Arms (both separate) Motor Arm (right): (0) No drift Motor Arm (left): (0) No drift - Motor Legs (both separate) Motor Leg (right): (0) No drift Motor Leg (left): (0) No drift - Limb Ataxia Limb Ataxia: (0) Absent - Sensory Sensory: (0) Normal - Best Language Best Language: (0) No aphasia - Dysarthria Dysarthria: (0) Normal - Extinction and Inattention (formally neg Extinction and inattention: (0) No abnormality - Total Score/Results Total Score/Result: 0 Results - Vitals Vitals: Vital Signs - 24 hr 08/10/19 08/10/19 08/10/19 09:54 12:36 14:05 Temperature 36.5 C Heart Rate 84 67 86 Respiratory 18 15 18 Rate Blood Pressure 127/79 113/73 114/63 O2 Saturation 98 98 98 08/10/19 15:03 Temperature Heart Rate 70 Respiratory 16 Rate Blood Pressure 118/77 O2 Saturation 100 Oxygen O2 Source [Without Activity] Room air O2 Source Room air - Labs Labs: Laboratory Tests 08/10/19 08/10/19 08/10/19 10:26 10:26 10:26 WBC 6.4 RBC 4.26 Hgb 13.4 Hct 40.7 MCV 95.5 MCH 31.5 H MCHC 32.9 RDW 12.3 Plt Count 252 MPV 9.2 Neut # (Auto) 3.7 Lymph # (Auto) 1.2 L [place] # (Auto) 0.8 Eos # (Auto) 0.6 Baso # (Auto) 0.0 Absolute Nucleated RBC 0.00 Nucleated RBC % 0.0 ESR 6 Sodium 137 Potassium 3.9 Chloride 104 Carbon Dioxide 26 Anion Gap 7.0 BUN 22 H Creatinine 0.8 Estimated GFR (MDRD) 68 L Glucose 99 Calcium 9.2 Magnesium 2.2 Total Bilirubin 0.7 AST 19 ALT 16 Alkaline Phosphatase 74 Total Protein 6.4 L Albumin 3.7 Globulin 2.7 Albumin/Globulin Ratio 1.4 Lipase 40 - Rads (name of study) head CT Radiology: Prelim report reviewed (no acute findings), See rad report chest xray Radiology: Prelim report reviewed (normal), See rad report PD MEDICAL DECISION MAKING - ED course Complexity details: considered differential (Sounds like TIA symptoms and she has had this in the past on the same side. She had carotid studies just 3 years ago. There were no stenoses at that time. She had been intolerant of antiplatelet agents of Plavix and dipyridamole and also higher dose aspirin due to GI upset that. She is able to tolerate the low dose baby aspirin. We will ensure there is no acute bleed with CT. The CT was under maintenance for a couple more hours and the patient was understanding of this. She wanted to just go home but I talked her into staying long enough for the CT to ensure no other bleed or swelling process at this time. The CT did result is normal and she was discharged with instructions for good hydration and continue her aspirin.), d/w patient Departure - Departure Disposition: 01 Home, Self Care Clinical Impression: TIA (transient ischemic attack) Qualifiers: Transient cerebral ischemia type: unspecified Qualified Code(s): G45.9 - Transient cerebral ischemic attack, unspecified Condition: Stable Record reviewed to determine appropriate education?: Yes Instructions: ED Transient Ischemic Attack Follow-Up: Yuri Abdi MD [Primary Care Provider] - Comments: Stay well-hydrated. Continue your aspirin daily. Follow-up with your primary care. Return if recurrent symptoms. Discharge Date/Time: 08/10/19 15:03
--- NOTE | 2019-08-10 13:59 | CT Report ---
Reason: left arm weakness Procedure Date: 08/10/2019 Accession Number: [id number] / [id number] Procedure: CT - HEAD WO CPT Code: Final Report FULL RESULT: EXAM: CT HEAD EXAM DATE: 08/10/2019 11:31 AM. CLINICAL HISTORY: Left arm weakness. COMPARISON: HEAD W/O STROKE PROTOCOL 02/24/2017 2:48 PM. TECHNIQUE: Multiaxial CT images were obtained from the foramen magnum to the vertex. Reformats: Sagittal and coronal. IV contrast: None. In accordance with CT protocol optimization, one or more of the following dose reduction techniques were utilized for this exam: automated exposure control, adjustment of mA and/or KV based on patient size, or use of iterative reconstructive technique. FINDINGS: Parenchyma: No intraparenchymal hemorrhage. No evidence of mass, midline shift, or CT findings of infarction. Haynes-white differentiation is distinct. Extraaxial Spaces: Normal for age. No subdural or epidural collections identified. Ventricles: Normal in size and position. Sinuses and Orbits: Imaged paranasal sinuses, orbits, and mastoids show no significant abnormality. Bones: No evidence of fracture or calvarial defect. Other: Multi tiny locules of air in the right rooms director space and along the right temporal bone. IMPRESSION: 1. No acute intracranial abnormality. 2. Multiple tiny locules of air in the right rooms director space and in the subcutaneous tissue along the right temporal bone. This is of unknown source and clinical significance and if clinically indicated a soft tissue neck CT may be of benefit to further characterize this finding as infection cannot be entirely excluded. A chest radiograph may be of benefit to exclude pneumothorax as this can produce subcutaneous air in the right neck. RADIA
--- NOTE | 2019-08-10 14:56 | XRAY Report ---
Reason: chest pain Procedure Date: 08/10/2019 Accession Number: [id number] / [id number] Procedure: XR - Chest 1 View X-Ray CPT Code: 41610 Final Report FULL RESULT: EXAM: CHEST RADIOGRAPHY EXAM DATE: 08/10/2019 02:41 PM. CLINICAL HISTORY: Chest pain. COMPARISON: CHEST 2 VIEW PA/LAT 03/12/2015 1:18 AM CHEST ANGIO 04/05/2017 4:16 PM. TECHNIQUE: 1 view. FINDINGS: Heart size appears within normal limits. Tortuous thoracic aorta. No pulmonary consolidation or edema. No costophrenic angle blunting. IMPRESSION: 1. Tortuous thoracic aorta. Unchanged. No acute cardiopulmonary changes. RADIA
[2019-08-10 15:06] VITALS: BP 118/77
== END 2019-08-10 15:03 | disposition home or self-care (01) ==
LOC: ED 09:46
DX: G45.9 Transient cerebral ischemic attack, unspecified (principal); Z66 Do not resuscitate
CPT/HCPCS: 36415; 70450; 71045; 80053; 83690; 83735; 85025; 85651; 99283; 99284

== ENCOUNTER 2019-12-21 18:27 | Outpatient (CLI) | payer MEDICARE, BC | END 2019-12-21 18:28 | disposition critical access hospital (66) | LOC: EMS 18:27 | PROVIDERS: ATTEND Surgery | DX: R25.3 Fasciculation (principal); R26.2 Difficulty in walking, not elsewhere classified; R47.89 Other speech disturbances; R11.2 Nausea with vomiting, unspecified | CPT/HCPCS: A0425; A0427 ==

== ENCOUNTER 2020-03-11 11:10 | Outpatient (CLI) | payer MEDICARE, BC ==
[2020-03-11 18:20] LABS: BASOPHILS % (AUTO) 0.6 %; EOSINOPHILS # (AUTO) 0.4 10^3/uL (0.0-0.7); HGB - HEMOGLOBIN 12.9 g/dL (12.0-16.0); LYMPHOCYTES # (AUTO) 1.8 10^3/uL (1.5-3.5); LYMPHOCYTES % (AUTO) 25.4 %; MEAN CORPUSCULAR HEMOGLOBIN 31.6 pg (27.0-31.0); MEAN CORPUSCULAR HGB CONC 31.9 g/dL (32.0-36.0); MEAN PLATELET VOLUME 10.8 fL (7.9-10.8); MONOCYTES # (AUTO) 0.8 10^3/uL (0.0-1.0); MONOCYTES % (AUTO) 11.4 %; NEUTROPHILS % (AUTO) 56.3 %; PLT - PLATELET COUNT 252 10^3/uL (130-450); RED BLOOD COUNT 4.08 10^6/uL (4.20-5.40); RED CELL DISTRIBUTION WIDTH 13.2 % (12.0-15.0); WHITE BLOOD COUNT 7.1 x10^3/uL (4.8-10.8)
[2020-03-11 18:37] LABS: ALBUMIN 4.2 g/dL (3.2-5.5); ALBUMIN/GLOBULIN RATIO 1.6 (1.0-2.2); BILIRUBIN,TOTAL 0.4 mg/dL (0.2-1.0); CALCIUM 9.9 mg/dL (8.5-10.3); TOTAL PROTEIN 6.8 g/dL (6.7-8.2)
== END 2020-03-11 23:59 | disposition home or self-care (01) ==
LOC: LAB.WCP 11:10
PROVIDERS: ATTEND Nurse Practitioner
DX: I67.89 Other cerebrovascular disease (principal); E78.5 Hyperlipidemia, unspecified; Z79.899 Other long term (current) drug therapy
CPT/HCPCS: 36415; 80053; 85025

== ENCOUNTER 2020-04-03 13:11 | Outpatient (CLI) | payer MEDICARE, BC | END 2020-04-03 13:12 | disposition home or self-care (01) | LOC: COV 13:11 | PROVIDERS: ATTEND Surgery | DX: Z01.818 Encounter for other preprocedural examination (principal); K40.90 Unilateral inguinal hernia, without obstruction or gangrene, not specified as recurrent; Z20.828 Contact with and (suspected) exposure to other viral communicable diseases ==

== ENCOUNTER 2020-04-07 08:44 | Day surgery (SDC) | payer MEDICARE, BC ==
[2020-04-07] MEDS ORDERED: LACTATED RINGERS 1,000 ML IV ONE ×2 (08:59→10:30)
[2020-04-07] MEDS ORDERED: LIDOCAINE 1%-EPI 1:100000 20 ML MDV ONE (09:06)
[2020-04-07] MEDS ORDERED: BUPIVACAINE 0.5% PF 30 ML VIAL ONE (09:06)
[2020-04-07] MEDS ORDERED: ceFAZolin 1 GM VIAL ONE (09:06)
[2020-04-07] MEDS ORDERED: LIDOCAINE 1%-EPI 1:100000 30 ML MDV SUBQ ONE ×3 (09:10→09:56)
[2020-04-07] MEDS ORDERED: BUPIVACAINE 0.5% PF 30 ML VIAL SUBQ ONE ×3 (09:11→09:56)
[2020-04-07] MEDS ORDERED: ceFAZolin 1 GM VIAL IR ONE (09:11)
--- NOTE | 2020-04-07 09:12 | ANESTHESIA ---
Pre-Anesthesia VS, & Labs - Diagnosis right inguinal hernia - Procedure right inguinal hernia repair with mesh Vital Signs: Temp Pulse Resp BP Pulse Ox 36.6 C 66 12 103/71 99 04/07/20 09:00 04/07/20 09:00 04/07/20 09:00 04/07/20 09:00 04/07/20 09:00 Height: 5 ft 1 in Weight (kg): 53.5 kg Body Mass Index: 22.2 BMI Classification: Healthy weight - NPO >8 hours - Is Patient ?: No Home Medications and Allergies Home Medications: Ambulatory Orders Aspirin [Aspirin EC] 325 mg PO DAILY 03/28/20 Pravastatin Sodium 20 mg PO QPM 03/28/20 Calcium Carbonate/Vitamin D3 [Calcium 500-Vit D3 600 Caplet] 1 tab PO DAILY 04/07/20 Multivitamin [Multiple Vitamins] 1 each PO DAILY 04/07/20 Clonazepam 0.125 mg PO BID 01/31/14 Levothyroxine [Synthroid] 0.025 mcg PO QDAC 12/21/19 Aspirin [Aspirin EC] 325 mg PO DAILY 03/28/20 Pravastatin Sodium 20 mg PO QPM 03/28/20 Calcium Carbonate/Vitamin D3 [Calcium 500-Vit D3 600 Caplet] 1 tab PO DAILY 04/07/20 Multivitamin [Multiple Vitamins] 1 each PO DAILY 04/07/20 Stopped plavix and aspirin 03/31 Allergies/Adverse Reactions: Allergies Allergy/AdvReac Type Severity Reaction Status Date / Time dipyridamole [From Aggrenox] Allergy Unknown Verified 12/21/19 18:49 gabapentin Allergy Emesis Verified 12/21/19 18:49 phenytoin sodium * Allergy Unknown Verified 12/21/19 18:49 [From Dilantin] phenytoin sodium extended * Allergy Unknown Verified 12/21/19 18:49 [From Dilantin] Anes History & Medical History - Anesthetic History Anesthesia Complications: reports: No previous complications - Medical History Cardiovascular: reports: Other (History of PFO) Pulmonary: reports: None Gastrointestinal: reports: GERD, Chronic constipation Urinary: reports: Incontinence Neuro: reports: TIA, Seizure disorder (last seizure was a year ago.) Musculoskeletal: reports: Osteoarthritis, Scoliosis Endocrine/Autoimmune: reports: HyPOthyroidism Blood Disorders: reports: None Skin: reports: None Smoking Status: Never smoker Psychosocial: reports: No issues indicated History of Cancer?: No - Surgical History General: Appendectomy, Colonoscopy, Other Gynecologic: Tubal ligation, Hysterectomy Orthopedic: Other Results - Echo Results Echo Results: Report reviewed (2017, showed EF 70% and PFO vs ASD) Exam General: Alert, Oriented x3, Cooperative, No acute distress Dental: WNL Mouth Openin Fingerbreadth Neck Mobility: Normal Mallampati classification: III Thyromental Distance: 4-6 cm Respiratory: Lungs clear, Normal breath sounds, No respiratory distress, No accessory muscle use Cardiovascular: Regular rate, Normal S1, Normal S2, No murmurs Mental/Cognitive Status: Alert/Oriented X3, Normal for patient Plan Anesthesia Type: General Consent for Procedure(s) Verified and Reviewed: Yes Code Status: Attempt Resuscitation ASA classification: 2-Mild systemic disease Is this case an emergency?: No
[2020-04-07] MEDS ORDERED: ACETAMINOPHEN 1,000 MG/100 ML 100 ML IV ONE (09:31)
[2020-04-07] MEDS ORDERED: ONDANSETRON 4 MG/2 ML VIAL IVP ONE (09:31)
[2020-04-07] MEDS ORDERED: PROPOFOL 200 MG/20 ML VIAL IVP ONE (09:31)
[2020-04-07] MEDS ORDERED: LIDOCAINE-MPF 2% 5 ML VIAL IM ONE (09:31)
[2020-04-07] MEDS ORDERED: ePHEDrine 50 MG/ML VIAL IVP ONE (09:31)
[2020-04-07] MEDS ORDERED: fentaNYL 100 MCG/2 ML VIAL IVP ONE (09:31)
[2020-04-07] MEDS ORDERED: MIDAZOLAM 2 MG/2 ML VIAL IVP ONE (09:31)
[2020-04-07] MEDS ORDERED: CEFAZOLIN SODIUM IN 0.9 % NACL 2 GM/100 ML BAG IV ONE (09:43)
--- NOTE | 2020-04-07 10:29 | OPERATIVE REPORT ---
Operative Report - General Procedure Date: 04/07/20 Planned Procedure: Right groin hernia repair Pre-Op Diagnosis: Right groin hernia Procedure Performed: Right femoral hernia repair Post Op Diagnosis: Right femoral hernia - Procedure Note Primary Surgeon: Nathan Anesthesia Provider: SOLANGE Howell Anesthesia Technique: General LMA Estimated Blood Loss (mL): 5 Indications: Painful and incarcerated right femoral hernia Findings: Incarcerated right femoral hernia Complications: None apparent - Other Other Information/Narrative: After obtaining informed consent, the patient is brought to the operating room and placed in the supine position on the operating table. Following successful induction of general endotracheal anesthesia, appropriate padding of all bony prominences, and placement of appropriate monitors, the abdomen was prepped and draped in the standard surgical fashion. A timeout was held per scope protocol. All elements of the surgical safety checklist were followed before, during, and after the procedure. We began the procedure by infiltrating a mixture of local anesthetics medial to the anterior superior iliac spine on the right. This was done to create an ileal inguinal nerve block. We then selected a site for an incision in the right lower quadrant just superior and lateral to the right pubic tubercle. This area was anesthetized with additional local anesthetic and an incision was created here.The incision was carried down through the skin and subcutaneous tissue to reveal the fascia of the external oblique aponeurosis. Retractor was placed and the aponeurosis was opened in direction of its fibers. The hernia sac was quite large and was protruding much more inferiorly than would be expected in an inguinal hernia. Further investigation revealed an incarcerated femoral hernia. The defect contained a loop of normal-appearing small bowel. Careful lysis of adhesions was performed sharply to free the bowel from the surrounding tissue and allow it to be returned to the abdomen without injury. We were careful to preserve the integrity of the peritoneum. We elected to repair the hernia with a large Prolene hernia system mesh implant. This was dipped in Ancef containing solution and then deployed into the defect. The posterior leaflet was straightened and flattened in the preperitoneal space. The inferior aspect of the anterior leaflet was then sewn to the pubic tubercle medially and the excess was trimmed. Laterally it was tucked under the external beak aponeurosis. It was tacked to the external oblique muscle to prevent migration. The aponeurosis was reapproximated.Subcutaneous tissue and areolar tissue was then closed over the mesh still visible in the left groin. The wound was checked for hemostasis and irrigated with warm saline solution containing Ancef. It was aspirated free of all fluid and particulate matter. The external oblique aponeurosis was then closed with a running locking Vicryl suture Delfina's fascia was closed with Vicryl suture and Monocryl stitches were placed in the skin. All sponge, needle, and instrument counts were correct at the conclusion of the case. The patient was allowed awaken from anesthesia without difficulty and taken to the postanesthesia care unit in good condition.
[2020-04-07] MEDS ORDERED: ACETAMINOPHEN 325 MG TABLET PO PRN (10:30)
[2020-04-07] MEDS ORDERED: ONDANSETRON 4 MG/2 ML VIAL IVP PRN ×2 (10:30→11:04)
[2020-04-07] MEDS ORDERED: IBUPROFEN 600 MG TABLET PO PRN (10:30)
[2020-04-07] MEDS ORDERED: oxyCODONE 5 MG TABLET PO PRN (10:30)
[2020-04-07] MEDS ORDERED: METOCLOPRAMIDE 10 MG/2 ML VIAL IVP PRN (11:04)
[2020-04-07] MEDS ORDERED: MORPHINE 2 MG/ML CARPUJECT IVP PRN (11:04)
[2020-04-07] MEDS ORDERED: fentaNYL 100 MCG/2 ML VIAL IVP PRN (11:04)
[2020-04-07] MEDS ORDERED: HYDROmorphone 0.5 MG/0.5 ML SYRINGE IVP PRN (11:04)
[2020-04-07] MEDS ORDERED: NALOXONE 0.4 MG/ML VIAL IVP PRN (11:04)
[2020-04-07] MEDS ORDERED: ePHEDrine 50 MG/ML VIAL IVP PRN (11:04)
[2020-04-07] MEDS ORDERED: ATROPINE ABBOJECT 1 MG/10 ML SYRINGE IVP PRN (11:04)
[2020-04-07 11:52] VITALS: BP 93/56
[2020-04-07] MEDS ORDERED: LACTATED RINGERS 1,000 ML IV SCH (12:00)
--- NOTE | 2020-04-07 12:00 | ANESTHESIA POST OP EVALUATION ---
Anesthesia Post Eval - Post Anesthesia Eval Vitals: Last Vital Signs Temp 36.6 C 04/07/20 11:51 Pulse 75 04/07/20 11:51 Resp 12 04/07/20 11:51 BP 93/56 L 04/07/20 11:51 Pulse Ox 98 04/07/20 11:51 CV Function Including HR & BP: positive: Stable Pain Control: positive: Satisfactory Nausea & Vomiting: positive: Negative Mental Status: positive: Baseline Respiratory Status: Airway Patent Hydration Status: Satisfactory Anesthesia Complications: positive: None
== END 2020-04-07 08:45 | disposition home or self-care (01) ==
LOC: SDS 08:44
PROVIDERS: ATTEND Surgery
DX: K41.30 Unilateral femoral hernia, with obstruction, without gangrene, not specified as recurrent (principal); Z86.73 Personal history of transient ischemic attack (TIA), and cerebral infarction without residual deficits
CPT/HCPCS: 49553; C1781; J0131; J0690; J7120

== ENCOUNTER 2020-06-17 13:36 | Outpatient (CLI) | payer MEDICARE, BC ==
--- NOTE | 2020-06-17 15:04 | XRAY Report ---
PROCEDURE: Knee 3 View RT INDICATIONS: R KNEE PX TECHNIQUE: 3 views of the right knee(s) were acquired. COMPARISON: None. FINDINGS: Bones: No fractures or dislocations. No suspicious bony lesions. There is gbdb-[id number]-[id number] articulation at the lateral compartment of the right knee, with a mild to moderate degree of medial and lateral f acet patellofemoral joint osteoarthritis Soft tissues: No joint effusion. No suspicious soft tissue calcifications. IMPRESSION: Moderate to moderately severe knee joint osteoarthritis at the right knee, most severe a t the lateral compartment where there is essentially [id number]-ep-[id number] articulation due to degenerative os teoarthritic changes. Reviewed by: Jeramy Hogan MD on 06/17/2020 3:02 PM PST Approved by: Jeramy Hogan MD on 06/17/2020 3:02 PM PST Station ID: [id number]
== END 2020-06-17 23:59 | disposition home or self-care (01) ==
LOC: DI.N 13:36
PROVIDERS: ATTEND Family Medicine
DX: M17.11 Unilateral primary osteoarthritis, right knee (principal)

== ENCOUNTER 2020-07-15 14:36 | Outpatient (CLI) | payer MEDICARE, BC ==
[2020-07-15 15:15] LABS: ALBUMIN 3.6 g/dL (3.2-5.5); ALBUMIN/GLOBULIN RATIO 1.3 (1.0-2.2); ALKALINE PHOSPHATASE 89 IU/L (42-121); ALT ALANINE AMINOTRANSFERASE 23 IU/L (10-60); AST ASPARTATE AMINOTRANSFERASE 26 IU/L (10-42); BILIRUBIN,TOTAL 0.4 mg/dL (0.2-1.0); BUN - BLOOD UREA NITROGEN 29 mg/dL (6-20); CALCIUM 9.2 mg/dL (8.5-10.3); CARBON DIOXIDE - CO2 24 mmol/L (21-32); CHLORIDE 108 mmol/L (101-111); CHOL/HDL RATIO 2.2 (<4.4); CHOLESTEROL 156 mg/dL; CREATININE 0.8 mg/dL (0.4-1.0); GFR - MDRD 68 (>89); GLUCOSE 117 mg/dL (70-100); HDL CHOLESTEROL 70 mg/dL; LDL CHOLESTEROL,CALCULATED 68 mg/dL; POTASSIUM 4.4 mmol/L (3.5-5.0); SODIUM 138 mmol/L (135-145); TOTAL PROTEIN 6.3 g/dL (6.7-8.2); TRIGLYCERIDES 88 mg/dL; VLDL CHOLESTEROL 18 mg/dL
== END 2020-07-15 14:37 | disposition home or self-care (01) ==
LOC: LAB 14:36
PROVIDERS: ATTEND Nurse Practitioner
DX: R94.5 Abnormal results of liver function studies (principal); E78.5 Hyperlipidemia, unspecified
CPT/HCPCS: 36415; 80053; 80061; 83721

== ENCOUNTER 2021-04-29 07:41 | Outpatient (CLI) | payer MEDICARE, BC | END 2021-04-29 07:42 | disposition critical access hospital (66) | LOC: EMS 07:41 | DX: M25.552 Pain in left hip (principal) | CPT/HCPCS: A0425; A0429 ==

== ENCOUNTER 2021-04-29 07:55 | Emergency (ER) | payer MEDICARE, BC ==
--- NOTE | 2021-04-29 08:02 | ED Physician Documentation ---
PD HPI LOWER EXT INJURY - Stated complaint Stated Complaint: L HIP PX - History obtained from History obtained from: Patient, EMS - History of Present Illness PD HPI LOW EXT INJURY LOCATION: Left, Hip Type of injury: No: Fall, Twist Where injury occurred: Home Timing - onset: Last night Timing - duration: Days (1-2) Timing - details: Gradual onset, Still present Worsened by: Moving (pain with twisting of the hip, pain on lateral aspect, and also tender to touching in the area.), Palpating Associated symptoms: No: Weakness, Numbness Similar symptoms before: Has not had sx before Review of Systems Constitutional: denies: Fever, Chills Nose: denies: Rhinorrhea / runny nose, Congestion Throat: denies: Sore throat Respiratory: denies: Cough Skin: denies: Rash, Lesions, Abrasion (s) Neurologic: denies: Focal weakness, Numbness PD PAST MEDICAL HISTORY - Past Medical History Cardiovascular: Other (History of PFO) Respiratory: None Neuro: TIA, Seizure disorder (last seizure was a year ago.) Endocrine/Autoimmune: HyPOthyroidism GI: GERD, Chronic constipation [employer]: None : Incontinence HEENT: Chronic vision loss Psych: Anxiety Musculoskeletal: Osteoarthritis, Scoliosis Derm: None - Past Surgical History Past Surgical History: Yes General: Appendectomy, Colonoscopy, Other Ortho: Other /[employer]: Tubal ligation, Hysterectomy - Present Medications Home Medications: Ambulatory Orders Medication Instructions Recorded Confirmed Clonazepam 0.125 mg PO BID 01/31/14 04/07/20 Clopidogrel [Plavix] 75 mg PO DAILY #30 tablet 12/21/19 04/07/20 Levothyroxine [Synthroid] 0.025 mcg PO QDAC 12/21/19 04/07/20 Aspirin [Aspirin EC] 325 mg PO DAILY 03/28/20 04/07/20 Pravastatin Sodium 20 mg PO QPM 03/28/20 04/07/20 Calcium Carbonate/Vitamin D3 1 tab PO DAILY 04/07/20 04/07/20 [Calcium 500-Vit D3 600 Caplet] Multivitamin [Multiple Vitamins] 1 each PO DAILY 04/07/20 04/07/20 Ondansetron Odt [Zofran Odt] 4 mg TL Q6H PRN #10 tablet 04/07/20 oxyCODONE [Roxicodone] 5 mg PO Q4-6H PRN #7 tablet 04/07/20 oxyCODONE [Roxicodone] 2.5 - 5 mg PO Q6H PRN #10 tablet 04/29/21 - Allergies Allergies/Adverse Reactions: Allergies Allergy/AdvReac Type Severity Reaction Status Date / Time dipyridamole [From Aggrenox] Allergy Unknown Verified 12/21/19 18:49 gabapentin Allergy Emesis Verified 12/21/19 18:49 phenytoin sodium * Allergy Unknown Verified 12/21/19 18:49 [From Dilantin] phenytoin sodium extended * Allergy Unknown Verified 12/21/19 18:49 [From Dilantin] - Social History Does the pt smoke?: No Smoking Status: Never smoker Does the pt drink ETOH?: No Does the pt have substance abuse?: No - Immunizations Immunizations are current?: No Immunizations: Other immun not current - POLST Patient has POLST: Yes POLST Status: DNR PD ED PE NORMAL - Vitals Vital signs reviewed: Yes - General General: Alert and oriented X 3, Well developed/nourished - Abdomen Abdomen: Soft, Non tender - Back Back: No CVA TTP, No spinal TTP - Derm Derm: Normal color, Warm and dry - Extremities Extremities: Other (left hip with tenderness over trochanter area, without redness/rash. No swelling. No pain at hip joint itself with palpation/rotation/nor impaction. ) - Neuro Neuro: Alert and oriented X 3, No motor deficit, No sensory deficit, Normal speech Results - Vitals Vitals: Vital Signs - 24 hr 04/29/21 08:03 Temperature 36.7 C Heart Rate 73 Respiratory 15 Rate Blood Pressure 128/79 O2 Saturation 100 Oxygen O2 Source [Without Activity] Room air O2 Source Room air - Rads (name of study) left hip Radiology: Prelim report reviewed (prior orthopedic changes; no acute fracture. ), See rad report PD MEDICAL DECISION MAKING - ED course Complexity details: reviewed results (normal xray and pain/tender is lateral trochanter area, so I do not feel advanced imaging is needed. Has prior ortho screws in the area, so might be having IT irritation from rubbing on screw heads. ), considered differential, d/w patient Departure - Departure Disposition: 01 Home, Self Care Clinical Impression: Pain of left lateral upper thigh, Iliotibial band tendonitis of left side Condition: Stable Record reviewed to determine appropriate education?: Yes Instructions: ED Strain Muscle Ext Follow-Up: Kaelyn Srivastava MD [Primary Care Provider] - Prescriptions: oxyCODONE [Roxicodone] 2.5 - 5 mg PO Q6H PRN #10 tablet PRN Reason: Pain Comments: At this point I presume there is some irritation or inflammation of the tendon along the outer side of the thigh (iliotibial band) and irritating the muscle and nerve in the area. Your x-ray appears normal. I would suggest using some Tylenol 500 mg 4 times a day for the next several days to week. To that add half to 1 tablet of the oxycodone every 6 hours if needed for worse pain. Activity as tolerated. You could use a walker to assist you in balance and such while this is improving. Recheck if not improved well over the next few days. Recheck sooner if other symptoms develop such as fever or rash or redness or increasing pain. Transmitted the prescription to [facility] pharmacy in [place]. Discharge Date/Time: 04/29/21 11:26
[2021-04-29 08:07] VITALS: BP 128/79
[2021-04-29] MEDS ORDERED: LIDOCAINE PATCH 5% TOP STA (08:15)
[2021-04-29] MEDS ORDERED: oxyCODONE 5 MG TABLET PO STA (08:15)
[2021-04-29] MEDS ORDERED: ACETAMINOPHEN 325 MG TABLET PO STA (08:15)
--- NOTE | 2021-04-29 08:54 | XRAY Report ---
PROCEDURE: Hip w/Pelvis 2-3V LT INDICATIONS: Left leg/hip pain TECHNIQUE: AP pelvis with lateral view(s) of the bilateral hip(s). COMPARISON: 03/25/2019 FINDINGS: Postsurgical changes of left femoral neck ORIF as seen on prior studies. No significant change in arsh earance of the hardware. No abnormal lucency surrounding the screws to suggest loosening. No acute fr acture or dislocation. 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 IMPRESSION: No acute finding. Reviewed by: Jose M Wasserman MD on 04/29/2021 8:52 AM PDT Approved by: Jose M Wasserman MD on 04/29/2021 8:52 AM PDT Station ID: [id number]
== END 2021-04-29 11:26 | disposition home or self-care (01) ==
LOC: EDUNIT# → ED 07:55
DX: M76.32 Iliotibial band syndrome, left leg (principal); M25.552 Pain in left hip; M79.652 Pain in left thigh; Z96.7 Presence of other bone and tendon implants; Z86.73 Personal history of transient ischemic attack (TIA), and cerebral infarction without residual deficits; Z79.02 Long term (current) use of antithrombotics/antiplatelets; Z79.82 Long term (current) use of aspirin; Z66 Do not resuscitate
CPT/HCPCS: 73502; 99284; A9270